=== PATIENT | male | born 1955 | race Caucasian/White ===

== ENCOUNTER → 2018-04-24 08:06 | Outpatient (CLI) | payer OTHER, SELFPAY ==
--- NOTE | 2018-04-24 | DI.MRI.S_ITS ---
PROCEDURE: MR SHOULDER RT WO CON INDICATIONS: Right shoulder pain with decreased range of motion TECHNIQUE: Noncontrast oblique coronal T2 fast spin echo with fat saturation, oblique sagittal T1 spin echo and T2 fast spin echo with fat saturation, axial T1 spin echo and T2 fast spin echo with fat saturation through the shoulder. COMPARISON: [facility], CR, XR SHOULDER RT MIN 2V, 03/06/2018, 13:07. FINDINGS: Image quality: Excellent. Rotator cuff: Supraspinatus tendinopathy and slitlike full-thickness tear is seen, for example image 10-11 series 8. There is infraspinatus tendinopathy and thickening involving the anterior fascicles. Teres minor, and subscapularis tendons appear intact throughout. There is diffuse fatty infiltration of the subscapularis, supraspinatus, infraspinatus and teres minor muscle bellies No definite rotator cuff muscle atrophy on sagittal images. Bones and bursae: No bone marrow contusions or fractures. Moderate acromioclavicular joint degeneration. Mild glenohumeral degenerative joint disease The acromion demonstrates conventional anatomy, without an os acromiale. There is moderate subacromial/subdeltoid bursal fluid. Capsule and soft tissues: In the absence of intra-articular contrast, the labrum and glenohumeral ligaments appear intact. The long head of the biceps tendon demonstrates normal location and morphology. The rotator interval appears normal, without fibrosis. The coracohumeral ligament is normal in thickness. IMPRESSION: Full-thickness slitlike tear involving the supraspinatus critical zone. Background supraspinatus tendinopathy. Infraspinatus tendinopathy and thickening involving the anterior fascicles. Diffuse fatty infiltration of the rotator cuff musculature. Moderate subacromial/subdeltoid bursitis. Dictated by: Janes Mullen M.D. on 04/24/2018 at 9:12 Approved by: Janes Mullen M.D. on 04/24/2018 at 9:20
== END ==
PROVIDERS: Family Provider Family Medicine; PCP Family Medicine; Visit Provider Orthopaedic Surgery
DX: M25.511 Pain in right shoulder (principal); S46.811A Strain of other muscles, fascia and tendons at shoulder and upper arm level, right arm, initial encounter
CPT/HCPCS: 73221

== ENCOUNTER 2018-10-25 14:06 | Emergency (ER) | payer MEDICARE, OTHER, SELFPAY ==
[2018-10-25 14:14] VITALS: BP 158/81; PULSE 84; RESP 16; TEMP 36.4; O2SAT 96; BMI 23.9
--- NOTE | 2018-10-25 14:38 | DI.CT.S_ITS ---
PROCEDURE: CT HEAD/BRAIN WO CON INDICATIONS: fall, hit back of head TECHNIQUE: Noncontrast 4.5 mm thick angled axial sections acquired from the foramen magnum to the vertex, with coronal and sagittal reformats. For radiation dose reduction, the following was used: automated exposure control, adjustment of mA and/or kV according to patient size. COMPARISON: None. FINDINGS: Image quality: Excellent. CSF spaces: Basal cisterns are patent. Small subdural hematoma is noted along the anterior falx. The ventricles are symmetric in size and shape. Brain: No intracranial bleeds or masses. There is mild cerebral volume loss for age, with resultant ventricular and sulcal prominence. There are mild/moderate periventricular and deep white matter chronic small vessel ischemic changes. There is intracranial internal carotid artery atherosclerosis. Skull and face: Calvarium and visualized facial bones appear intact, without suspicious lesions. There is parietal soft tissue contusion and small subscalp hematoma. Sinuses: Visualized sinuses and mastoids are clear. IMPRESSION: 1. Small subdural hematoma along the anterior falx. 2. Cerebral volume loss and chronic microvascular ischemic changes. 3. Parietal soft tissue contusion and small subscalp hematoma. The result was discussed with Alyssa Parikh on 10/25/2018 at 1535 hrs. Dictated by: Helen Woodsno M.D. on 10/25/2018 at 15:29 Approved by: Helen Woodson M.D. on 10/25/2018 at 15:38
--- NOTE | 2018-10-25 14:38 | DI.RAD.S_ITS ---
PROCEDURE: XR RIBS RT MIN 3V W CXR 1V INDICATIONS: fall off first rung ladder TECHNIQUE: 2 views of the right ribs were acquired, along with a single view chest. COMPARISON: None. FINDINGS: Surgical changes and devices: Post surgical changes in the lower cervical spine.. Bones and chest wall: Non-acute right seventh and eighth rib fractures are noted. No suspicious bony lesions. Overlying soft tissues appear unremarkable. Degenerative changes in thoracic spine. Lungs and pleura: No pleural effusions or pneumothorax. Lungs appear clear. Mediastinum: Mediastinal contours appear normal. Heart size is normal. IMPRESSION: Non-acute right seventh and eighth rib fractures are present. No acute displaced rib fractures identified. Dictated by: Helen Woodson M.D. on 10/25/2018 at 15:04 Approved by: Helen Woodson M.D. on 10/25/2018 at 15:08
[2018-10-25] MEDS: TET,DIPH,PERTUSS(ACELL),VAC/PF 0.5 ML SYRINGE IM (14:44)
--- NOTE | 2018-10-25 14:48 | ED.HEATRA ---
HPI - Head Injury <Alyssa ParikhOLAYINKAP-BC - Last Filed: 10/25/18 21:49> General Chief complaint: Head Injury Stated complaint: Fall, head wound Time Seen by Provider: 10/25/18 14:26 Source: patient Mode of arrival: ambulatory Limitations: no limitations History of Present Illness HPI Narrative: Patient is a 63-year-old male nonsmoker with a history of diabetes who presents with a chief complaint of a fall today. He states he fell off the low was wrong of a ladder and hit his head on concrete. Complains of a laceration to the back of his head as well as rib pain. He denies any neck or midline spinal pain. He states he did not lose consciousness. He does not know when his last tetanus was. He denies any other pain. He presented himself to the emergency department. Related Data Home Medications Medication Instructions Recorded Confirmed insulin glargine [Lantus U-100 20 units SQ BEDTIME #0 03/08/10 10/25/18 Insulin] insulin lispro [Humalog U-100 4 - 12 units SQ AC #0 03/08/10 10/25/18 Insulin] levothyroxine [Synthroid] 0.175 mg PO QDAY #0 03/08/10 10/25/18 budesonide 2 spray INTRANASAL DAILY #0 03/15/10 10/25/18 niacin [Niaspan Extended-Release] 1,000 mg PO BEDTIME #0 03/15/10 10/25/18 Ca carb-Ca gluc-Mg ox-Mg gluco 1 tab PO DAILY #0 09/18/17 10/25/18 [Calcium Magnesium] budesonide-formoterol [Symbicort] 2 inh INH BID #0 09/18/17 10/25/18 cetirizine 10 mg PO DAILY PRN #0 09/18/17 10/25/18 flaxseed 15 ml PO DAILY #0 09/18/17 10/25/18 methocarbamol 500 - 1,000 mg PO Q6HP PRN #0 09/18/17 10/25/18 enalapril maleate 20 mg PO DAILY 10/25/18 10/25/18 glucagon (human recombinant) 1 mg IM DIRECTED 10/25/18 10/25/18 [Glucagon Emergency Kit (human)] Allergies Allergy/AdvReac Type Severity Reaction Status Date / Time No Known Drug Allergies Allergy Verified 10/25/18 14:12 Review of Systems <RENEE Myers - Last Filed: 10/25/18 21:49> Review of Systems GENERAL: Denies chills, fatigue, malaise, fever, sweats. HEENT: Denies sinus pain, ear pain, sore throat, difficulty swallowing, dizziness. RESPIRATORY: See HPI CARDIOVASCULAR: Denies chest pain, palpitations, orthopnea, edema, GASTROINTESTINAL: Denies nausea, vomiting, abdominal pain, diarrhea, constipation, melena. : Denies dysuria, frequency, incontinence, hematuria, urinary retention. MUSCULOSKELETAL: denies weakness, joint pain, or bony pain SKIN: See HPI NEUROLOGIC: Denies weakness, headache, numbness, change in speech, confusion, seizures, incoordination. PSYCHIATRIC: No concerning psychosocial issues. 12 point review of systems is negative except for those stated above Exam <RENEE Myers - Last Filed: 10/25/18 21:49> Narrative Exam Narrative: GENERAL: This is a well-nourished, well-developed patient, in no acute distress with gauze on the back of his head HEAD: Atraumatic. Normocephalic. No temporal or scalp tenderness. EYES: Right pupil is 2 mm round and reactive. Left pupil is irregular. Patient states that this is normal for him ?even though it is never noted in my chart ENT: Nose without bleeding, purulent drainage or septal hematoma. Throat without erythema, tonsillar hypertrophy or exudate. Uvula midline. Airway patent. NECK: Trachea midline. No JVD or lymphadenopathy. Supple, nontender, no meningeal signs. No pain to C-spine or spinal palpation. CARDIOVASCULAR: Regular rate and rhythm without murmurs, gallops, or rubs. RESPIRATORY: Clear to auscultation. Breath sounds equal bilaterally. No wheezes, rales, or rhonchi. GASTROINTESTINAL: Abdomen soft, non-tender, nondistended. No hepato-splenomegaly, or palpable masses. No guarding. EXTREMITIES: No clubbing, cyanosis, or edema. No joint tenderness, effusion, or edema noted. BACK: Nontender without deformity or crepitance. No flank tenderness. NEURO: AOx3. No slurred speech. Using all extremities equally. SKIN: Laceration to occiput of head. 2 cm. linear. No obvious foreign body. through dermis. no muscle or tendon involvement. Initial Vital Signs Initial Vital Signs: Vital Signs Temperature 97.5 F L 10/25/18 14:14 Pulse Rate 84 10/25/18 14:14 Respiratory Rate 16 10/25/18 14:14 Blood Pressure 158/81 H 10/25/18 14:14 Pulse Oximetry 96 10/25/18 14:14 <Benjie Salvador DO - Last Filed: 10/25/18 22:10> Initial Vital Signs Initial Vital Signs: Vital Signs Temperature 97.5 F L 10/25/18 14:14 Pulse Rate 84 10/25/18 14:14 Respiratory Rate 16 10/25/18 14:14 Blood Pressure 158/81 H 10/25/18 14:14 Pulse Oximetry 96 10/25/18 14:14 Procedures <RENEE Myers - Last Filed: 10/25/18 21:49> Laceration Repair Laceration 1: Site: scalp Size (cm): 2 Description: linear Depth: simple, single layer Pre-repair: wound explored, irrigated extensively and deep structures intact Skin layer closed with: other (staple x 3) Course <RENEE Myers - Last Filed: 10/25/18 21:49> Orders Ordered: ED Orders 10/25/18 14:38 CT head/brain wo con Stat XR ribs RT min 3V w CXR1V Stat 10/25/18 15:44 CT cervical spine wo con Stat 10/25/18 15:50 Complete Blood Count AUTO DIFF Stat Comprehensive Metabolic Panel Stat Ethanol (ETOH) Stat Lipase Stat Partial Thromboplastin Time Stat Prothrombin Time INR Stat 10/25/18 16:00 Type and Screen Stat 10/25/18 20:30 CT head/brain wo con Stat 10/25/18 20:31 Urine Microscopic Stat Discontinued Medications Diphtheria/Tetanus/Acell Pertussis (Adacel) 0.5 ml IM .ONCE ONE Stop: 10/25/18 14:39 Last Admin: 10/25/18 14:44 Dose: 0.5 ml Reevaluation(s) Reevaluation #1: Patient remains GCS 15. Wound closure as per procedural note. Time: 17:00 Reevaluation #2: Patient remains GCS 15 no complaints. Follows all commands. Strength is equal upper and lower extremities bilaterally. Time: 18:30 Reevaluation #3: Patient remains GCS 15 without complaints. Following all commands steady on feet. Time: 19:30 Consultations Consultation #1: [facility] transfer center contacted Time: 15:50 Consultation #2: Spoke with Dr Vimal Allen from Neurosurgery at [facility]. He reviewed the CT scan. Recommended that the patient receive another head CT at this facility in the next 4-6 hours. If he had a subdural that small at [facility], they would re-scan him and discharge appropriate. Thus this can be accomplished at this facility. Discussed this with patient. He is amendable to waiting for another CT scan rather than jumping to transfer. Time: 16:20 Vital Signs - 8 hr 10/25/18 14:14 10/25/18 16:30 10/25/18 16:58 Temperature 97.5 F L Pulse Rate 84 91 H Respiratory Rate 16 20 Blood Pressure 158/81 H Blood Pressure [Left Arm] 155/86 H Pulse Oximetry 96 100 10/25/18 18:22 10/25/18 20:15 10/25/18 21:52 Temperature Pulse Rate 99 H 84 82 Respiratory Rate 20 18 16 Blood Pressure 138/60 Blood Pressure [Left Arm] 142/63 H 158/63 H Pulse Oximetry 100 97 98 <Benjie Salvador, DO - Last Filed: 10/25/18 22:10> Orders Ordered: ED Orders 10/25/18 14:38 CT head/brain wo con Stat XR ribs RT min 3V w CXR1V Stat 10/25/18 15:44 CT cervical spine wo con Stat 10/25/18 15:50 Complete Blood Count AUTO DIFF Stat Comprehensive Metabolic Panel Stat Ethanol (ETOH) Stat Lipase Stat Partial Thromboplastin Time Stat Prothrombin Time INR Stat 10/25/18 16:00 Type and Screen Stat 10/25/18 20:30 CT head/brain wo con Stat 10/25/18 20:31 Urine Microscopic Stat Discontinued Medications Diphtheria/Tetanus/Acell Pertussis (Adacel) 0.5 ml IM .ONCE ONE Stop: 10/25/18 14:39 Last Admin: 10/25/18 14:44 Dose: 0.5 ml Vital Signs - 8 hr 10/25/18 14:14 10/25/18 16:30 10/25/18 16:58 Temperature 97.5 F L Pulse Rate 84 91 H Respiratory Rate 16 20 Blood Pressure 158/81 H Blood Pressure [Left Arm] 155/86 H Pulse Oximetry 96 100 10/25/18 18:22 10/25/18 20:15 10/25/18 21:52 Temperature Pulse Rate 99 H 84 82 Respiratory Rate 20 18 16 Blood Pressure 138/60 Blood Pressure [Left Arm] 142/63 H 158/63 H Pulse Oximetry 100 97 98 MDM - Head Injury <TIFFANIE Myers- - Last Filed: 10/25/18 21:49> Lab Data Result diagrams: 10/25/18 15:50 10/25/18 15:50 Lab Results 10/25/18 10/25/18 10/25/18 Range/Units 15:50 15:50 15:50 WBC 6.8 (4.5-11.0) X10^3/uL RBC 4.61 (4.5-5.9) X10^6/uL Hgb 14.7 (13.5-17.5) g/dL Hct 43.5 (41-53) % MCV 94.4 (80-100) fL MCH 32.0 (26-34) PG MCHC 33.9 (30-36) % RDW 13.5 (11.6-14.8) % Plt Count 205 (150-400) X10^3/uL Neut % (Auto) 77.5 H (50-75) % Lymph % (Auto) 15.5 L (25-40) % [place] % (Auto) 5.3 (3-14) % Eos % (Auto) 1.3 L (2-4) % Baso % (Auto) 0.4 (0-2) % Neut # (Auto) 5300 (8487-9437) /uL PT 11.0 (10.1-12.7) SECONDS INR 1.0 (0.9-1.3) APTT 27 (26.4-36.2) SECONDS Sodium 140 (137-145) mmol/L Potassium 4.6 (3.4-5.1) mmol/L Chloride 101 (98-107) mmol/L Carbon Dioxide 28 (22-32) mmol/L BUN 21 H (9-20) mg/dL Creatinine 0.70 (0.66-1.25) mg/dL Estimated GFR > 60.0 (>60) mL/min BUN/Creatinine Ratio 30.0 H (6-22) Glucose 185 H (80-110) mg/dL Calcium 9.7 (8.4-10.2) mg/dL Total Bilirubin 0.5 (0.2-1.3) mg/dL AST 54 (17-59) IU/L ALT 54 (21-72) IU/L Alkaline Phosphatase 110 (38-126) U/L Total Protein 7.5 (6.3-8.2) g/dL Albumin 4.4 (3.5-5.0) g/dL Globulin 3.1 (1.7-4.1) g/dL Albumin/Globulin Ratio 1.4 (1.0-2.8) Lipase 81 (23-300) U/L Urine Color Urine Appearance Urine pH Ur Specific Polo Urine Protein Urine Glucose (UA) Urine Ketones Urine Occult Blood Urine Nitrate Urine Bilirubin Urine Urobilinogen Ur Leukocyte Esterase Urine RBC (0-5/HPF) Urine WBC (0-5/HPF) Urine Bacteria (None) Ur Culture Indicated? Micro UA Comment Ethyl Alcohol < 10 mg/dL Blood Type Antibody Screen 10/25/18 10/25/18 Range/Units 16:00 20:31 WBC (4.5-11.0) X10^3/uL RBC (4.5-5.9) X10^6/uL Hgb (13.5-17.5) g/dL Hct (41-53) % MCV (80-100) fL MCH (26-34) PG MCHC (30-36) % RDW (11.6-14.8) % Plt Count (150-400) X10^3/uL Neut % (Auto) (50-75) % Lymph % (Auto) (25-40) % [place] % (Auto) (3-14) % Eos % (Auto) (2-4) % Baso % (Auto) (0-2) % Neut # (Auto) (0966-4838) /uL PT (10.1-12.7) SECONDS INR (0.9-1.3) APTT (26.4-36.2) SECONDS Sodium (137-145) mmol/L Potassium (3.4-5.1) mmol/L Chloride (98-107) mmol/L Carbon Dioxide (22-32) mmol/L BUN (9-20) mg/dL Creatinine (0.66-1.25) mg/dL Estimated GFR (>60) mL/min BUN/Creatinine Ratio (6-22) Glucose (80-110) mg/dL Calcium (8.4-10.2) mg/dL Total Bilirubin (0.2-1.3) mg/dL AST (17-59) IU/L ALT (21-72) IU/L Alkaline Phosphatase (38-126) U/L Total Protein (6.3-8.2) g/dL Albumin (3.5-5.0) g/dL Globulin (1.7-4.1) g/dL Albumin/Globulin Ratio (1.0-2.8) Lipase (23-300) U/L Urine Color Cancelled Urine Appearance Cancelled Urine pH Cancelled Ur Specific Polo Cancelled Urine Protein Cancelled Urine Glucose (UA) Cancelled Urine Ketones Cancelled Urine Occult Blood Cancelled Urine Nitrate Cancelled Urine Bilirubin Cancelled Urine Urobilinogen Cancelled Ur Leukocyte Esterase Cancelled Urine RBC 30-100/hpf H (0-5/HPF) Urine WBC 1-5/hpf (0-5/HPF) Urine Bacteria None seen (None) Ur Culture Indicated? Not Reportable Micro UA Comment Not Reportable Ethyl Alcohol mg/dL Blood Type B Positive Antibody Screen Negative Point of Care Testing Glucose POC 220 Urine Dip Bedside Urine Glucose 500 mg/dl Bedside Urine Bilirubin - Negative Bedside Urine Ketone +/- 5 Urine Specific Polo 1.025 Bedside Urine Occult Blood +++ Bedside Urine pH 6.0 Bedside Urine Protein - Negative Bedside Urine Urobilinogen - Negative Bedside Urine Nitrite - Negative Bedside Urine Leukocytes - Negative Esterase Imaging Data C Spine CT : Radiologist's impression: [address] [address] [address] Scan Report Signed Patient: Danny Van MR#: [id number] : 1955 Acct:[id number] Age/Sex: 63 / M Date of Service: 10/25/18 Loc: ED Accession Number: [id number] Procedure: CT cervical spine wo con Ordering Provider: Alyssa Parikh- PROCEDURE: CT CERVICAL SPINE WO CON INDICATIONS: subdural bleed from a fall TECHNIQUE: Noncontrast 3 mm thick sections acquired from the skull base to the T4 level. Sagittal and coronal reformats were then constructed. For radiation dose reduction, the following was used: automated exposure control, adjustment of mA and/or kV according to patient size. COMPARISON: None. FINDINGS: Image quality: Excellent. Bones: Patient is status post anterior and posterior fusion at C3-C6 levels. No gross hardware loosening or failure is seen. There is straightening of normal cervical lordosis. No acute compression fracture or spondylolisthesis is noted. Vertebral body heights are well-preserved. Degenerative endplate changes are noted at C2-3, C6-7 and C7-T1 levels. Dorsal disc osteophyte complex formation at C6-7 and C7-T1 levels are seen with bilateral uncinate hypertrophic changes causing moderate central canal stenosis and bilateral neuroforaminal narrowing. Visualized superior ribs are intact. Soft tissues: Prevertebral soft tissues are normal in thickness. No paravertebral hematomas. No apical pneumothoraces. Biapical scarring is seen. IMPRESSION: 1. Prior fusion of C3-C6 vertebral bodies. Straightening of normal cervical lordosis. No acute cervical spine fracture or dislocation. No gross hardware complication. 2. Degenerative disc disease throughout cervical spine with suggestion of broad-based disc bulge and dorsal disc osteophyte complex formation at C6-7 and C7-T1 levels causing moderate central canal stenosis and bilateral neuroforaminal narrowing. Dictated by: Taiwo Lal M.D. on 10/25/2018 at 16:05 Approved by: Taiwo Lal M.D. on 10/25/2018 at 16:12 ribs xray : Radiologist's impression: View Report History [address] [address] XRay Report Signed Patient: Danny Van MR#: [id number] : 1955 Acct:[id number] Age/Sex: 63 / M Date of Service: 10/25/18 Loc: ED Accession Number: [id number] Procedure: XR ribs RT min 3V w CXR1V [facility] PROCEDURE: XR RIBS RT MIN 3V W CXR 1V INDICATIONS: fall off first rung ladder TECHNIQUE: 2 views of the right ribs were acquired, along with a single view chest. COMPARISON: None. FINDINGS: Surgical changes and devices: Post surgical changes in the lower cervical spine.. Bones and chest wall: Non-acute right seventh and eighth rib fractures are noted. No suspicious bony lesions. Overlying soft tissues appear unremarkable. Degenerative changes in thoracic spine. Lungs and pleura: No pleural effusions or pneumothorax. Lungs appear clear. Mediastinum: Mediastinal contours appear normal. Heart size is normal. IMPRESSION: Non-acute right seventh and eighth rib fractures are present. No acute displaced rib fractures identified. Dictated by: Helen Woodson M.D. on 10/25/2018 at 15:04 Approved by: Helen Woodson M.D. on 10/25/2018 at 15:08 CT scan - head: Radiologist's impression: [place] [address] CT Scan Report Signed Patient: Danny Van MR#: [id number] : 1955 Acct:[id number] Age/Sex: 63 / M Date of Service: 10/25/18 Loc: ED Accession Number: [id number] Procedure: CT head/brain wo con [facility]ing [facility] PROC[facility]: CT HEAD/BRAIN WO CON INDICATIONS: fall, hit back of head TECHNIQUE: Noncontrast 4.5 mm thick angled axial sections acquired from the foramen magnum to the vertex, with coronal and sagittal reformats. For radiation dose reduction, the following was used: automated exposure control, adjustment of mA and/or kV according to patient size. COMPARISON: None. FINDINGS: Image quality: Excellent. CSF spaces: Basal cisterns are patent. Small subdural hematoma is noted along the anterior falx. The ventricles are symmetric in size and shape. Brain: No intracranial bleeds or masses. There is mild cerebral volume loss for age, with resultant ventricular and sulcal prominence. There are mild/moderate periventricular and deep white matter chronic small vessel ischemic changes. There is intracranial internal carotid artery atherosclerosis. Skull and face: Calvarium and visualized facial bones appear intact, without suspicious lesions. There is parietal soft tissue contusion and small subscalp hematoma. Sinuses: Visualized sinuses and mastoids are clear. IMPRESSION: 1. Small subdural hematoma along the anterior falx. 2. Cerebral volume loss and chronic microvascular ischemic changes. 3. Parietal soft tissue contusion and small subscalp hematoma. The result was discussed with Alyssa Parikh on 10/25/2018 at 1535 hrs. Dictated by: Helen Woodson M.D. on 10/25/2018 at 15:29 Approved by: Helen Woodson M.D. on 10/25/2018 at 15:38 CT head: Radiologist's impression: [place] [address] CT Scan Report Signed Patient: Danny Van MR#: [id number] : 1955 Acct:[id number] Age/Sex: 63 / M Date of Service: 10/25/18 Loc: ED Accession Number: [id number] Procedure: CT head/brain wo con Ordering Provider: Alyssa Parikh [employer]- PROCEDURE: CT HEAD/BRAIN WO CON INDICATIONS: compare size of subdural from previous scan at 15:30 TECHNIQUE: Noncontrast 4.5 mm thick angled axial sections acquired from the foramen magnum to the vertex, with coronal and sagittal reformats. For radiation dose reduction, the following was used: automated exposure control, adjustment of mA and/or kV according to patient size. COMPARISON: [facility], CT, CT HEAD/BRAIN WO CON, 10/25/2018, 15:03. FINDINGS: Image quality: Excellent. CSF spaces: Basal cisterns are patent. Small subdural hematoma along the anterior falx appears unchanged. The ventricles are symmetric in size and shape. Brain: No intracranial bleeds or masses. There is mild cerebral volume loss for age, with resultant ventricular and sulcal prominence. There are mild periventricular and deep white matter chronic small vessel ischemic changes. There is intracranial internal carotid artery atherosclerosis. Skull and face: Calvarium and visualized facial bones appear intact, without suspicious lesions. Sinuses: Visualized sinuses and mastoids are clear. IMPRESSION: 1. Stable small subdural hematoma along the anterior floor. 2. Cerebral volume loss and chronic microvascular ischemic changes. Dictated by: Helen Woodson M.D. on 10/25/2018 at 20:59 Approved by: Helen Woodson M.D. on 10/25/2018 at 21:02 [facility] Narrative Medical decision making narrative: Patient presented after falling backwards off a 2nd rung of a ladder. He was GCS 15 and hemodynamically stable and neurovascularly intact. However given his mechanism of injury and baseline regular pupils, I did obtain a CT scan. This revealed a small subdural hematoma. Subsequently [facility] was contacted, trauma labs were drawn, and I spoke with the neurosurgeon as documented. Per Dr. Vimal Allen, the subdural was small enough that the patient could be re-scanned in 4 hr and discharged if there is no change. Thus this is what we did. He remained GCS 15 and without neurological deficit during the 5 hr between his scans. His laceration was closed as documented. UA illustrated hematuria, I suggested follow-up with primary care provider regarding this. Of note he did complain of some chest wall pain and had no acute fractures on his x-ray. I discussed at length with patient return precautions including confusion, altered mental status as well as follow up with primary care provider. He had no questions or concerns and expressed appreciation for stated in the emergency department. <Benjie Salvador, DO - Last Filed: 10/25/18 22:10> Lab Data Lab Results 10/25/18 10/25/18 10/25/18 Range/Units 15:50 15:50 15:50 WBC 6.8 (4.5-11.0) X10^3/uL RBC 4.61 (4.5-5.9) X10^6/uL Hgb 14.7 (13.5-17.5) g/dL Hct 43.5 (41-53) % MCV 94.4 (80-100) fL MCH 32.0 (26-34) PG MCHC 33.9 (30-36) % RDW 13.5 (11.6-14.8) % Plt Count 205 (150-400) X10^3/uL Neut % (Auto) 77.5 H (50-75) % Lymph % (Auto) 15.5 L (25-40) % [place] % (Auto) 5.3 (3-14) % Eos % (Auto) 1.3 L (2-4) % Baso % (Auto) 0.4 (0-2) % Neut # (Auto) 5300 (8814-7450) /uL PT 11.0 (10.1-12.7) SECONDS INR 1.0 (0.9-1.3) APTT 27 (26.4-36.2) SECONDS Sodium 140 (137-145) mmol/L Potassium 4.6 (3.4-5.1) mmol/L Chloride 101 (98-107) mmol/L Carbon Dioxide 28 (22-32) mmol/L BUN 21 H (9-20) mg/dL Creatinine 0.70 (0.66-1.25) mg/dL Estimated GFR > 60.0 (>60) mL/min BUN/Creatinine Ratio 30.0 H (6-22) Glucose 185 H (80-110) mg/dL Calcium 9.7 (8.4-10.2) mg/dL Total Bilirubin 0.5 (0.2-1.3) mg/dL AST 54 (17-59) IU/L ALT 54 (21-72) IU/L Alkaline Phosphatase 110 (38-126) U/L Total Protein 7.5 (6.3-8.2) g/dL Albumin 4.4 (3.5-5.0) g/dL Globulin 3.1 (1.7-4.1) g/dL Albumin/Globulin Ratio 1.4 (1.0-2.8) Lipase 81 (23-300) U/L Urine Color Urine Appearance Urine pH Ur Specific Polo Urine Protein Urine Glucose (UA) Urine Ketones Urine Occult Blood Urine Nitrate Urine Bilirubin Urine Urobilinogen Ur Leukocyte Esterase Urine RBC (0-5/HPF) Urine WBC (0-5/HPF) Urine Bacteria (None) Ur Culture Indicated? Micro UA Comment Ethyl Alcohol < 10 mg/dL Blood Type Antibody Screen 10/25/18 10/25/18 Range/Units 16:00 20:31 WBC (4.5-11.0) X10^3/uL RBC (4.5-5.9) X10^6/uL Hgb (13.5-17.5) g/dL Hct (41-53) % MCV (80-100) fL MCH (26-34) PG MCHC (30-36) % RDW (11.6-14.8) % Plt Count (150-400) X10^3/uL Neut % (Auto) (50-75) % Lymph % (Auto) (25-40) % [place] % (Auto) (3-14) % Eos % (Auto) (2-4) % Baso % (Auto) (0-2) % Neut # (Auto) (2173-3222) /uL PT (10.1-12.7) SECONDS INR (0.9-1.3) APTT (26.4-36.2) SECONDS Sodium (137-145) mmol/L Potassium (3.4-5.1) mmol/L Chloride (98-107) mmol/L Carbon Dioxide (22-32) mmol/L BUN (9-20) mg/dL Creatinine (0.66-1.25) mg/dL Estimated GFR (>60) mL/min BUN/Creatinine Ratio (6-22) Glucose (80-110) mg/dL Calcium (8.4-10.2) mg/dL Total Bilirubin (0.2-1.3) mg/dL AST (17-59) IU/L ALT (21-72) IU/L Alkaline Phosphatase (38-126) U/L Total Protein (6.3-8.2) g/dL Albumin (3.5-5.0) g/dL Globulin (1.7-4.1) g/dL Albumin/Globulin Ratio (1.0-2.8) Lipase (23-300) U/L Urine Color Cancelled Urine Appearance Cancelled Urine pH Cancelled Ur Specific Polo Cancelled Urine Protein Cancelled Urine Glucose (UA) Cancelled Urine Ketones Cancelled Urine Occult Blood Cancelled Urine Nitrate Cancelled Urine Bilirubin Cancelled Urine Urobilinogen Cancelled Ur Leukocyte Esterase Cancelled Urine RBC 30-100/hpf H (0-5/HPF) Urine WBC 1-5/hpf (0-5/HPF) Urine Bacteria None seen (None) Ur Culture Indicated? Not Reportable Micro UA Comment Not Reportable Ethyl Alcohol mg/dL Blood Type B Positive Antibody Screen Negative Point of Care Testing Glucose POC 220 Urine Dip Bedside Urine Glucose 500 mg/dl Bedside Urine Bilirubin - Negative Bedside Urine Ketone +/- 5 Urine Specific Polo 1.025 Bedside Urine Occult Blood +++ Bedside Urine pH 6.0 Bedside Urine Protein - Negative Bedside Urine Urobilinogen - Negative Bedside Urine Nitrite - Negative Bedside Urine Leukocytes - Negative Esterase Discharge Plan Departure Patient Disposition: Home Clinical Impression: Intracranial subdural hematoma, Chest wall contusion, Hematuria, Fall, Laceration, Contusion Discharge Date/Time: 10/25/18 21:52 Interventions: ED Discharge Assessment Last Done: 10/25/18 21:58 Instructions: DI for Laceration Repair -- [place], DI for Rib Contusion, DI for Hematuria, DI for Subdural Hematoma Activity Restrictions/Additional Instructions: Today when you fell you ended up with bleeding in your head. We scanned your head twice, about 5 hr apart and there was no change the bleed. Please monitor for any confusion, vomiting or acute neurological signs. Please be re-evaluated immediately if you have any concerns. Please have your denis out in 10-14 days. Please monitor for fever, pus or any signs of infection and be evaluated if any of these occur. Please follow-up with primary care provider as soon as possible. Please remember that there was blood in your urine today and this needs to be monitored. Prescriptions: No Action insulin lispro [Humalog U-100 Insulin] 100 unit/mL Solution 4 - 12 units SQ AC Qty: 0 RF: 0 levothyroxine [Synthroid] 175 MCG tablet 0.175 mg PO QDAY Qty: 0 RF: 0 insulin glargine [Lantus U-100 Insulin] 100 unit/mL Solution 20 units SQ BEDTIME Qty: 0 RF: 0 budesonide 32 mcg/actuation Hardy,Non-Aerosol 2 spray INTRANASAL DAILY Qty: 0 RF: 0 niacin [Niaspan Extended-Release] 1,000 MG tablet extended release 24 hr 1,000 mg PO BEDTIME Qty: 0 RF: 0 cetirizine 10 MG tablet 10 mg PO DAILY PRN (Reason: Allergy Symptoms) Qty: 0 RF: 0 Ca carb-Ca gluc-Mg ox-Mg gluco [Calcium Magnesium] 500 mg calcium -250 mg Tablet 1 tab PO DAILY Qty: 0 RF: 0 flaxseed Powder 15 ml PO DAILY Qty: 0 RF: 0 methocarbamol 500 MG tablet 500 - 1,000 mg PO Q6HP PRN (Reason: Muscle Spasm) Qty: 0 RF: 0 budesonide-formoterol [Symbicort] 80 MCG/4.5 MCG HFA aerosol inhaler 2 inh INH BID Qty: 0 RF: 0 enalapril maleate 20 mg Tablet 20 mg PO DAILY RF: 0 glucagon (human recombinant) [Glucagon Emergency Kit (human)] 1 mg Recon Soln 1 mg IM DIRECTED RF: 0 Referrals: Arias Haile MD [Primary Care Provider] - <Benjie Salvador DO - Last Filed: 10/25/18 22:10> Cosign ED Attending Fiona Attestation: I was available for consultation during this patient's emergency department encounter
--- NOTE | 2018-10-25 14:52 | ED_ITS ---
HPI - Head Injury <Alyssa ParikhOLAYINKAP-BC - Last Filed: 10/25/18 21:49> General Chief complaint: Head Injury Stated complaint: Fall, head wound Time Seen by Provider: 10/25/18 14:26 Source: patient Mode of arrival: ambulatory Limitations: no limitations History of Present Illness HPI Narrative: Patient is a 63-year-old male nonsmoker with a history of diabetes who presents with a chief complaint of a fall today. He states he fell off the low was wrong of a ladder and hit his head on concrete. Complains of a laceration to the back of his head as well as rib pain. He denies any neck or midline spinal pain. He states he did not lose consciousness. He does not know when his last tetanus was. He denies any other pain. He presented himself to the emergency department. Related Data Home Medications Medication Instructions Recorded Confirmed insulin glargine [Lantus U-100 20 units SQ BEDTIME #0 03/08/10 10/25/18 Insulin] insulin lispro [Humalog U-100 4 - 12 units SQ AC #0 03/08/10 10/25/18 Insulin] levothyroxine [Synthroid] 0.175 mg PO QDAY #0 03/08/10 10/25/18 budesonide 2 spray INTRANASAL DAILY #0 03/15/10 10/25/18 niacin [Niaspan Extended-Release] 1,000 mg PO BEDTIME #0 03/15/10 10/25/18 Ca carb-Ca gluc-Mg ox-Mg gluco 1 tab PO DAILY #0 09/18/17 10/25/18 [Calcium Magnesium] budesonide-formoterol [Symbicort] 2 inh INH BID #0 09/18/17 10/25/18 cetirizine 10 mg PO DAILY PRN #0 09/18/17 10/25/18 flaxseed 15 ml PO DAILY #0 09/18/17 10/25/18 methocarbamol 500 - 1,000 mg PO Q6HP PRN #0 09/18/17 10/25/18 enalapril maleate 20 mg PO DAILY 10/25/18 10/25/18 glucagon (human recombinant) 1 mg IM DIRECTED 10/25/18 10/25/18 [Glucagon Emergency Kit (human)] Allergies Allergy/AdvReac Type Severity Reaction Status Date / Time No Known Drug Allergies Allergy Verified 10/25/18 14:12 Review of Systems <RENEE Myers - Last Filed: 10/25/18 21:49> Review of Systems GENERAL: Denies chills, fatigue, malaise, fever, sweats. HEENT: Denies sinus pain, ear pain, sore throat, difficulty swallowing, dizziness. RESPIRATORY: See HPI CARDIOVASCULAR: Denies chest pain, palpitations, orthopnea, edema, GASTROINTESTINAL: Denies nausea, vomiting, abdominal pain, diarrhea, constipation, melena. : Denies dysuria, frequency, incontinence, hematuria, urinary retention. MUSCULOSKELETAL: denies weakness, joint pain, or bony pain SKIN: See HPI NEUROLOGIC: Denies weakness, headache, numbness, change in speech, confusion, seizures, incoordination. PSYCHIATRIC: No concerning psychosocial issues. 12 point review of systems is negative except for those stated above Exam <RENEE Myers - Last Filed: 10/25/18 21:49> Narrative Exam Narrative: GENERAL: This is a well-nourished, well-developed patient, in no acute distress with gauze on the back of his head HEAD: Atraumatic. Normocephalic. No temporal or scalp tenderness. EYES: Right pupil is 2 mm round and reactive. Left pupil is irregular. Patient states that this is normal for him ?even though it is never noted in my chart ENT: Nose without bleeding, purulent drainage or septal hematoma. Throat without erythema, tonsillar hypertrophy or exudate. Uvula midline. Airway patent. NECK: Trachea midline. No JVD or lymphadenopathy. Supple, nontender, no meningeal signs. No pain to C-spine or spinal palpation. CARDIOVASCULAR: Regular rate and rhythm without murmurs, gallops, or rubs. RESPIRATORY: Clear to auscultation. Breath sounds equal bilaterally. No wheezes , rales, or rhonchi. GASTROINTESTINAL: Abdomen soft, non-tender, nondistended. No hepato-splenomegaly , or palpable masses. No guarding. EXTREMITIES: No clubbing, cyanosis, or edema. No joint tenderness, effusion, or edema noted. BACK: Nontender without deformity or crepitance. No flank tenderness. NEURO: AOx3. No slurred speech. Using all extremities equally. SKIN: Laceration to occiput of head. 2 cm. linear. No obvious foreign body. through dermis. no muscle or tendon involvement. Initial Vital Signs Initial Vital Signs: Vital Signs Temperature 97.5 F L 10/25/18 14:14 Pulse Rate 84 10/25/18 14:14 Respiratory Rate 16 10/25/18 14:14 Blood Pressure 158/81 H 10/25/18 14:14 Pulse Oximetry 96 10/25/18 14:14 <Benjie Salvador DO - Last Filed: 10/25/18 22:10> Initial Vital Signs Initial Vital Signs: Vital Signs Temperature 97.5 F L 10/25/18 14:14 Pulse Rate 84 10/25/18 14:14 Respiratory Rate 16 10/25/18 14:14 Blood Pressure 158/81 H 10/25/18 14:14 Pulse Oximetry 96 10/25/18 14:14 Procedures <RENEE Myers - Last Filed: 10/25/18 21:49> Laceration Repair Laceration 1: Site: scalp Size (cm): 2 Description: linear Depth: simple, single layer Pre-repair: wound explored, irrigated extensively and deep structures intact Skin layer closed with: other (staple x 3) Course <RENEE Myers - Last Filed: 10/25/18 21:49> Orders Ordered: ED Orders 10/25/18 14:38 CT head/brain wo con Stat XR ribs RT min 3V w CXR1V Stat 10/25/18 15:44 CT cervical spine wo con Stat 10/25/18 15:50 Complete Blood Count AUTO DIFF Stat Comprehensive Metabolic Panel Stat Ethanol (ETOH) Stat Lipase Stat Partial Thromboplastin Time Stat Prothrombin Time INR Stat 10/25/18 16:00 Type and Screen Stat 10/25/18 20:30 CT head/brain wo con Stat 10/25/18 20:31 Urine Microscopic Stat Discontinued Medications Diphtheria/Tetanus/Acell Pertussis (Adacel) 0.5 ml IM .ONCE ONE Stop: 10/25/18 14:39 Last Admin: 10/25/18 14:44 Dose: 0.5 ml Reevaluation(s) Reevaluation #1: Patient remains GCS 15. Wound closure as per procedural note. Time: 17:00 Reevaluation #2: Patient remains GCS 15 no complaints. Follows all commands. Strength is equal upper and lower extremities bilaterally. Time: 18:30 Reevaluation #3: Patient remains GCS 15 without complaints. Following all commands steady on feet. Time: 19:30 Consultations Consultation #1: [facility] transfer center contacted Time: 15:50 Consultation #2: Spoke with Dr Vimal Allen from Neurosurgery at [facility]. He reviewed the CT scan. Recommended that the patient receive another head CT at this facility in the next 4-6 hours. If he had a subdural that small at [facility], they would re-scan him and discharge appropriate. Thus this can be accomplished at this facility. Discussed this with patient. He is amendable to waiting for another CT scan rather than jumping to transfer. Time: 16:20 Vital Signs - 8 hr 10/25/18 14:14 10/25/18 16:30 10/25/18 16:58 Temperature 97.5 F L Pulse Rate 84 91 H Respiratory Rate 16 20 Blood Pressure 158/81 H Blood Pressure [Left Arm] 155/86 H Pulse Oximetry 96 100 10/25/18 18:22 10/25/18 20:15 10/25/18 21:52 Temperature Pulse Rate 99 H 84 82 Respiratory Rate 20 18 16 Blood Pressure 138/60 Blood Pressure [Left Arm] 142/63 H 158/63 H Pulse Oximetry 100 97 98 <Benjie Salvador, DO - Last Filed: 10/25/18 22:10> Orders Ordered: ED Orders 10/25/18 14:38 CT head/brain wo con Stat XR ribs RT min 3V w CXR1V Stat 10/25/18 15:44 CT cervical spine wo con Stat 10/25/18 15:50 Complete Blood Count AUTO DIFF Stat Comprehensive Metabolic Panel Stat Ethanol (ETOH) Stat Lipase Stat Partial Thromboplastin Time Stat Prothrombin Time INR Stat 10/25/18 16:00 Type and Screen Stat 10/25/18 20:30 CT head/brain wo con Stat 10/25/18 20:31 Urine Microscopic Stat Discontinued Medications Diphtheria/Tetanus/Acell Pertussis (Adacel) 0.5 ml IM .ONCE ONE Stop: 10/25/18 14:39 Last Admin: 10/25/18 14:44 Dose: 0.5 ml Vital Signs - 8 hr 10/25/18 14:14 10/25/18 16:30 10/25/18 16:58 Temperature 97.5 F L Pulse Rate 84 91 H Respiratory Rate 16 20 Blood Pressure 158/81 H Blood Pressure [Left Arm] 155/86 H Pulse Oximetry 96 100 10/25/18 18:22 10/25/18 20:15 10/25/18 21:52 Temperature Pulse Rate 99 H 84 82 Respiratory Rate 20 18 16 Blood Pressure 138/60 Blood Pressure [Left Arm] 142/63 H 158/63 H Pulse Oximetry 100 97 98 MDM - Head Injury <TIFFANIE Myers- - Last Filed: 10/25/18 21:49> Lab Data Result diagrams: 10/25/18 15:50 10/25/18 15:50 Lab Results 10/25/18 10/25/18 10/25/18 Range/Units 15:50 15:50 15:50 WBC 6.8 (4.5-11.0) X10^3/uL RBC 4.61 (4.5-5.9) X10^6/uL Hgb 14.7 (13.5-17.5) g/dL Hct 43.5 (41-53) % MCV 94.4 (80-100) fL MCH 32.0 (26-34) PG MCHC 33.9 (30-36) % RDW 13.5 (11.6-14.8) % Plt Count 205 (150-400) X10^3/uL Neut % (Auto) 77.5 H (50-75) % Lymph % (Auto) 15.5 L (25-40) % Benzie % (Auto) 5.3 (3-14) % Eos % (Auto) 1.3 L (2-4) % Baso % (Auto) 0.4 (0-2) % Neut # (Auto) 5300 (6288-1231) /uL PT 11.0 (10.1-12.7) SECONDS INR 1.0 (0.9-1.3) APTT 27 (26.4-36.2) SECONDS Sodium 140 (137-145) mmol/L Potassium 4.6 (3.4-5.1) mmol/L Chloride 101 (98-107) mmol/L Carbon Dioxide 28 (22-32) mmol/L BUN 21 H (9-20) mg/dL Creatinine 0.70 (0.66-1.25) mg/dL Estimated GFR > 60.0 (>60) mL/min BUN/Creatinine Ratio 30.0 H (6-22) Glucose 185 H (80-110) mg/dL Calcium 9.7 (8.4-10.2) mg/dL Total Bilirubin 0.5 (0.2-1.3) mg/dL AST 54 (17-59) IU/L ALT 54 (21-72) IU/L Alkaline Phosphatase 110 (38-126) U/L Total Protein 7.5 (6.3-8.2) g/dL Albumin 4.4 (3.5-5.0) g/dL Globulin 3.1 (1.7-4.1) g/dL Albumin/Globulin Ratio 1.4 (1.0-2.8) Lipase 81 (23-300) U/L Urine Color Urine Appearance Urine pH Ur Specific [place] Urine Protein Urine Glucose (UA) Urine Ketones Urine Occult Blood Urine Nitrate Urine Bilirubin Urine Urobilinogen Ur Leukocyte Esterase Urine RBC (0-5/HPF) Urine WBC (0-5/HPF) Urine Bacteria (None) Ur Culture Indicated? Micro UA Comment Ethyl Alcohol < 10 mg/dL Blood Type Antibody Screen 10/25/18 10/25/18 Range/Units 16:00 20:31 WBC (4.5-11.0) X10^3/uL RBC (4.5-5.9) X10^6/uL Hgb (13.5-17.5) g/dL Hct (41-53) % MCV (80-100) fL MCH (26-34) PG MCHC (30-36) % RDW (11.6-14.8) % Plt Count (150-400) X10^3/uL Neut % (Auto) (50-75) % Lymph % (Auto) (25-40) % Benzie % (Auto) (3-14) % Eos % (Auto) (2-4) % Baso % (Auto) (0-2) % Neut # (Auto) (3132-0876) /uL PT (10.1-12.7) SECONDS INR (0.9-1.3) APTT (26.4-36.2) SECONDS Sodium (137-145) mmol/L Potassium (3.4-5.1) mmol/L Chloride (98-107) mmol/L Carbon Dioxide (22-32) mmol/L BUN (9-20) mg/dL Creatinine (0.66-1.25) mg/dL Estimated GFR (>60) mL/min BUN/Creatinine Ratio (6-22) Glucose (80-110) mg/dL Calcium (8.4-10.2) mg/dL Total Bilirubin (0.2-1.3) mg/dL AST (17-59) IU/L ALT (21-72) IU/L Alkaline Phosphatase (38-126) U/L Total Protein (6.3-8.2) g/dL Albumin (3.5-5.0) g/dL Globulin (1.7-4.1) g/dL Albumin/Globulin Ratio (1.0-2.8) Lipase (23-300) U/L Urine Color Cancelled Urine Appearance Cancelled Urine pH Cancelled Ur Specific [place] Cancelled Urine Protein Cancelled Urine Glucose (UA) Cancelled Urine Ketones Cancelled Urine Occult Blood Cancelled Urine Nitrate Cancelled Urine Bilirubin Cancelled Urine Urobilinogen Cancelled Ur Leukocyte Esterase Cancelled Urine RBC 30-100/hpf H (0-5/HPF) Urine WBC 1-5/hpf (0-5/HPF) Urine Bacteria None seen (None) Ur Culture Indicated? Not Reportable Micro UA Comment Not Reportable Ethyl Alcohol mg/dL Blood Type B Positive Antibody Screen Negative Point of Care Testing Glucose POC 220 Urine Dip Bedside Urine Glucose 500 mg/dl Bedside Urine Bilirubin - Negative Bedside Urine Ketone +/- 5 Urine Specific [place] 1.025 Bedside Urine Occult Blood +++ Bedside Urine pH 6.0 Bedside Urine Protein - Negative Bedside Urine Urobilinogen - Negative Bedside Urine Nitrite - Negative Bedside Urine Leukocytes - Negative Esterase Imaging Data C Spine CT : Radiologist's impression: [address] [address] [address] Scan Report Signed Patient: Danny Van MR#: [id number] : 1955 Acct:[id number] Age/Sex: 63 / M Date of Service: 10/25/18 Loc: ED Accession Number: [id number] Procedure: CT cervical spine wo con Ordering Provider: Alyssa Parikh- PROCEDURE: CT CERVICAL SPINE WO CON INDICATIONS: subdural bleed from a fall TECHNIQUE: Noncontrast 3 mm thick sections acquired from the skull base to the T4 level. Sagittal and coronal reformats were then constructed. For radiation dose reduction, the following was used: automated exposure control, adjustment of mA and/or kV according to patient size. COMPARISON: None. FINDINGS: Image quality: Excellent. Bones: Patient is status post anterior and posterior fusion at C3-C6 levels. No gross hardware loosening or failure is seen. There is straightening of normal cervical lordosis. No acute compression fracture or spondylolisthesis is noted. Vertebral body heights are well-preserved. Degenerative endplate changes are noted at C2-3, C6- 7 and C7-T1 levels. Dorsal disc osteophyte complex formation at C6-7 and C7-T1 levels are seen with bilateral uncinate hypertrophic changes causing moderate central canal stenosis and bilateral neuroforaminal narrowing. Visualized superior ribs are intact. Soft tissues: Prevertebral soft tissues are normal in thickness. No paravertebral hematomas. No apical pneumothoraces. Biapical scarring is seen. IMPRESSION: 1. Prior fusion of C3-C6 vertebral bodies. Straightening of normal cervical lordosis. No acute cervical spine fracture or dislocation. No gross hardware complication. 2. Degenerative disc disease throughout cervical spine with suggestion of broad- based disc bulge and dorsal disc osteophyte complex formation at C6-7 and C7-T1 levels causing moderate central canal stenosis and bilateral neuroforaminal narrowing. Dictated by: Taiwo Lal M.D. on 10/25/2018 at 16:05 Approved by: Taiwo Lal M.D. on 10/25/2018 at 16:12 ribs xray : Radiologist's impression: View Report History [address] [address] XRay Report Signed Patient: Danny Van MR#: [id number] : 1955 Acct:[id number] Age/Sex: 63 / M Date of Service: 10/25/18 Loc: ED Accession Number: [id number] Procedure: XR ribs RT min 3V w CXR1V [facility]: XR RIBS RT MIN 3V W CXR 1V INDICATIONS: fall off first rung ladder TECHNIQUE: 2 views of the right ribs were acquired, along with a single view chest. COMPARISON: None. FINDINGS: Surgical changes and devices: Post surgical changes in the lower cervical spine.. Bones and chest wall: Non-acute right seventh and eighth rib fractures are noted. No suspicious bony lesions. Overlying soft tissues appear unremarkable. Degenerative changes in thoracic spine. Lungs and pleura: No pleural effusions or pneumothorax. Lungs appear clear. Mediastinum: Mediastinal contours appear normal. Heart size is normal. IMPRESSION: Non-acute right seventh and eighth rib fractures are present. No acute displaced rib fractures identified. Dictated by: Helen Woodson M.D. on 10/25/2018 at 15:04 Approved by: Helen Woodson M.D. on 10/25/2018 at 15:08 CT scan - head: Radiologist's impression: [place] [address] CT Scan Report Signed Patient: Danny Van MR#: [id number] : 1955 Acct:[id number] Age/Sex: 63 / M Date of Service: 10/25/18 Loc: ED Accession Number: [id number] Procedure: CT head/brain wo con [facility]ing [facility] CT HEAD/BRAIN WO CON INDICATIONS: fall, hit back of head TECHNIQUE: Noncontrast 4.5 mm thick angled axial sections acquired from the foramen magnum to the vertex, with coronal and sagittal reformats. For radiation dose reduction, the following was used: automated exposure control, adjustment of mA and/or kV according to patient size. COMPARISON: None. FINDINGS: Image quality: Excellent. CSF spaces: Basal cisterns are patent. Small subdural hematoma is noted along the anterior falx. The ventricles are symmetric in size and shape. Brain: No intracranial bleeds or masses. There is mild cerebral volume loss for age, with resultant ventricular and sulcal prominence. There are mild/moderate periventricular and deep white matter chronic small vessel ischemic changes. There is intracranial internal carotid artery atherosclerosis. Skull and face: Calvarium and visualized facial bones appear intact, without suspicious lesions. There is parietal soft tissue contusion and small subscalp hematoma. Sinuses: Visualized sinuses and mastoids are clear. IMPRESSION: 1. Small subdural hematoma along the anterior falx. 2. Cerebral volume loss and chronic microvascular ischemic changes. 3. Parietal soft tissue contusion and small subscalp hematoma. The result was discussed with Alyssa Parikh on 10/25/2018 at 1535 hrs. Dictated by: Helen Woodson M.D. on 10/25/2018 at 15:29 Approved by: Helen Woodson M.D. on 10/25/2018 at 15:38 CT head: Radiologist's impression: [place] [address] CT Scan Report Signed Patient: Danny Van MR#: [id number] : 1955 Acct:[id number] Age/Sex: 63 / M Date of Service: 10/25/18 Loc: ED Accession Number: [id number] Procedure: CT head/brain wo con Ordering Provider: Alyssa Parikh REGISTERED NURSE- PROCEDURE: CT HEAD/BRAIN WO CON INDICATIONS: compare size of subdural from previous scan at 15:30 TECHNIQUE: Noncontrast 4.5 mm thick angled axial sections acquired from the foramen magnum to the vertex, with coronal and sagittal reformats. For radiation dose reduction, the following was used: automated exposure control, adjustment of mA and/or kV according to patient size. COMPARISON: [facility], CT, CT HEAD/BRAIN WO CON, 10/25/2018, 15:03. FINDINGS: Image quality: Excellent. CSF spaces: Basal cisterns are patent. Small subdural hematoma along the anterior falx appears unchanged. The ventricles are symmetric in size and shape. Brain: No intracranial bleeds or masses. There is mild cerebral volume loss for age, with resultant ventricular and sulcal prominence. There are mild periventricular and deep white matter chronic small vessel ischemic changes. There is intracranial internal carotid artery atherosclerosis. Skull and face: Calvarium and visualized facial bones appear intact, without suspicious lesions. Sinuses: Visualized sinuses and mastoids are clear. IMPRESSION: 1. Stable small subdural hematoma along the anterior floor. 2. Cerebral volume loss and chronic microvascular ischemic changes. Dictated by: Helen Woodson M.D. on 10/25/2018 at 20:59 Approved by: Helen Woodson M.D. on 10/25/2018 at 21:02 [facility] Narrative Medical decision making narrative: Patient presented after falling backwards off a 2nd rung of a ladder. He was GCS 15 and hemodynamically stable and neurovascularly intact. However given his mechanism of injury and baseline regular pupils, I did obtain a CT scan. This revealed a small subdural hematoma. Subsequently [facility] was contacted, trauma labs were drawn, and I spoke with the neurosurgeon as documented. Per Dr. Vimal Allen, the subdural was small enough that the patient could be re-scanned in 4 hr and discharged if there is no change. Thus this is what we did. He remained GCS 15 and without neurological deficit during the 5 hr between his scans. His laceration was closed as documented. UA illustrated hematuria, I suggested follow-up with primary care provider regarding this. Of note he did complain of some chest wall pain and had no acute fractures on his x-ray. I discussed at length with patient return precautions including confusion, altered mental status as well as follow up with primary care provider. He had no questions or concerns and expressed appreciation for stated in the emergency department. <Benjie Salvador, DO - Last Filed: 10/25/18 22:10> Lab Data Lab Results 10/25/18 10/25/18 10/25/18 Range/Units 15:50 15:50 15:50 WBC 6.8 (4.5-11.0) X10^3/uL RBC 4.61 (4.5-5.9) X10^6/uL Hgb 14.7 (13.5-17.5) g/dL Hct 43.5 (41-53) % MCV 94.4 (80-100) fL MCH 32.0 (26-34) PG MCHC 33.9 (30-36) % RDW 13.5 (11.6-14.8) % Plt Count 205 (150-400) X10^3/uL Neut % (Auto) 77.5 H (50-75) % Lymph % (Auto) 15.5 L (25-40) % Benzie % (Auto) 5.3 (3-14) % Eos % (Auto) 1.3 L (2-4) % Baso % (Auto) 0.4 (0-2) % Neut # (Auto) 5300 (7816-6478) /uL PT 11.0 (10.1-12.7) SECONDS INR 1.0 (0.9-1.3) APTT 27 (26.4-36.2) SECONDS Sodium 140 (137-145) mmol/L Potassium 4.6 (3.4-5.1) mmol/L Chloride 101 (98-107) mmol/L Carbon Dioxide 28 (22-32) mmol/L BUN 21 H (9-20) mg/dL Creatinine 0.70 (0.66-1.25) mg/dL Estimated GFR > 60.0 (>60) mL/min BUN/Creatinine Ratio 30.0 H (6-22) Glucose 185 H (80-110) mg/dL Calcium 9.7 (8.4-10.2) mg/dL Total Bilirubin 0.5 (0.2-1.3) mg/dL AST 54 (17-59) IU/L ALT 54 (21-72) IU/L Alkaline Phosphatase 110 (38-126) U/L Total Protein 7.5 (6.3-8.2) g/dL Albumin 4.4 (3.5-5.0) g/dL Globulin 3.1 (1.7-4.1) g/dL Albumin/Globulin Ratio 1.4 (1.0-2.8) Lipase 81 (23-300) U/L Urine Color Urine Appearance Urine pH Ur Specific [place] Urine Protein Urine Glucose (UA) Urine Ketones Urine Occult Blood Urine Nitrate Urine Bilirubin Urine Urobilinogen Ur Leukocyte Esterase Urine RBC (0-5/HPF) Urine WBC (0-5/HPF) Urine Bacteria (None) Ur Culture Indicated? Micro UA Comment Ethyl Alcohol < 10 mg/dL Blood Type Antibody Screen 10/25/18 10/25/18 Range/Units 16:00 20:31 WBC (4.5-11.0) X10^3/uL RBC (4.5-5.9) X10^6/uL Hgb (13.5-17.5) g/dL Hct (41-53) % MCV (80-100) fL MCH (26-34) PG MCHC (30-36) % RDW (11.6-14.8) % Plt Count (150-400) X10^3/uL Neut % (Auto) (50-75) % Lymph % (Auto) (25-40) % Benzie % (Auto) (3-14) % Eos % (Auto) (2-4) % Baso % (Auto) (0-2) % Neut # (Auto) (3021-1411) /uL PT (10.1-12.7) SECONDS INR (0.9-1.3) APTT (26.4-36.2) SECONDS Sodium (137-145) mmol/L Potassium (3.4-5.1) mmol/L Chloride (98-107) mmol/L Carbon Dioxide (22-32) mmol/L BUN (9-20) mg/dL Creatinine (0.66-1.25) mg/dL Estimated GFR (>60) mL/min BUN/Creatinine Ratio (6-22) Glucose (80-110) mg/dL Calcium (8.4-10.2) mg/dL Total Bilirubin (0.2-1.3) mg/dL AST (17-59) IU/L ALT (21-72) IU/L Alkaline Phosphatase (38-126) U/L Total Protein (6.3-8.2) g/dL Albumin (3.5-5.0) g/dL Globulin (1.7-4.1) g/dL Albumin/Globulin Ratio (1.0-2.8) Lipase (23-300) U/L Urine Color Cancelled Urine Appearance Cancelled Urine pH Cancelled Ur Specific [place] Cancelled Urine Protein Cancelled Urine Glucose (UA) Cancelled Urine Ketones Cancelled Urine Occult Blood Cancelled Urine Nitrate Cancelled Urine Bilirubin Cancelled Urine Urobilinogen Cancelled Ur Leukocyte Esterase Cancelled Urine RBC 30-100/hpf H (0-5/HPF) Urine WBC 1-5/hpf (0-5/HPF) Urine Bacteria None seen (None) Ur Culture Indicated? Not Reportable Micro UA Comment Not Reportable Ethyl Alcohol mg/dL Blood Type B Positive Antibody Screen Negative Point of Care Testing Glucose POC 220 Urine Dip Bedside Urine Glucose 500 mg/dl Bedside Urine Bilirubin - Negative Bedside Urine Ketone +/- 5 Urine Specific [place] 1.025 Bedside Urine Occult Blood +++ Bedside Urine pH 6.0 Bedside Urine Protein - Negative Bedside Urine Urobilinogen - Negative Bedside Urine Nitrite - Negative Bedside Urine Leukocytes - Negative Esterase Discharge Plan Departure Patient Disposition: Home Clinical Impression: Intracranial subdural hematoma, Chest wall contusion, Hematuria, Fall, Laceration, Contusion Discharge Date/Time: 10/25/18 21:52 Interventions: ED Discharge Assessment Last Done: 10/25/18 21:58 Instructions: DI for Laceration Repair -- [place], DI for Rib Contusion, DI for Hematuria, DI for Subdural Hematoma Activity Restrictions/Additional Instructions: Today when you fell you ended up with bleeding in your head. We scanned your head twice, about 5 hr apart and there was no change the bleed. Please monitor for any confusion, vomiting or acute neurological signs. Please be re-evaluated immediately if you have any concerns. Please have your denis out in 10-14 days. Please monitor for fever, pus or any signs of infection and be evaluated if any of these occur. Please follow-up with primary care provider as soon as possible. Please remember that there was blood in your urine today and this needs to be monitored. Prescriptions: No Action insulin lispro [Humalog U-100 Insulin] 100 unit/mL Solution 4 - 12 units SQ AC Qty: 0 RF: 0 levothyroxine [Synthroid] 175 MCG tablet 0.175 mg PO QDAY Qty: 0 RF: 0 insulin glargine [Lantus U-100 Insulin] 100 unit/mL Solution 20 units SQ BEDTIME Qty: 0 RF: 0 budesonide 32 mcg/actuation Nursery,Non-Aerosol 2 spray INTRANASAL DAILY Qty: 0 RF: 0 niacin [Niaspan Extended-Release] 1,000 MG tablet extended release 24 hr 1,000 mg PO BEDTIME Qty: 0 RF: 0 cetirizine 10 MG tablet 10 mg PO DAILY PRN (Reason: Allergy Symptoms) Qty: 0 RF: 0 Ca carb-Ca gluc-Mg ox-Mg gluco [Calcium Magnesium] 500 mg calcium -250 mg Tablet 1 tab PO DAILY Qty: 0 RF: 0 flaxseed Powder 15 ml PO DAILY Qty: 0 RF: 0 methocarbamol 500 MG tablet 500 - 1,000 mg PO Q6HP PRN (Reason: Muscle Spasm) Qty: 0 RF: 0 budesonide-formoterol [Symbicort] 80 MCG/4.5 MCG HFA aerosol inhaler 2 inh INH BID Qty: 0 RF: 0 enalapril maleate 20 mg Tablet 20 mg PO DAILY RF: 0 glucagon (human recombinant) [Glucagon Emergency Kit (human)] 1 mg Recon Soln 1 mg IM DIRECTED RF: 0 Referrals: Arias Haile MD [Primary Care Provider] - <Benjie Salvador DO - Last Filed: 10/25/18 22:10> Cosign ED Attending Fiona Attestation: I was available for consultation during this patient's emergency department encounter
--- NOTE | 2018-10-25 15:44 | DI.CT.S_ITS ---
PROCEDURE: CT CERVICAL SPINE WO CON INDICATIONS: subdural bleed from a fall TECHNIQUE: Noncontrast 3 mm thick sections acquired from the skull base to the T4 level. Sagittal and coronal reformats were then constructed. For radiation dose reduction, the following was used: automated exposure control, adjustment of mA and/or kV according to patient size. COMPARISON: None. FINDINGS: Image quality: Excellent. Bones: Patient is status post anterior and posterior fusion at C3-C6 levels. No gross hardware loosening or failure is seen. There is straightening of normal cervical lordosis. No acute compression fracture or spondylolisthesis is noted. Vertebral body heights are well-preserved. Degenerative endplate changes are noted at C2-3, C6-7 and C7-T1 levels. Dorsal disc osteophyte complex formation at C6-7 and C7-T1 levels are seen with bilateral uncinate hypertrophic changes causing moderate central canal stenosis and bilateral neuroforaminal narrowing. Visualized superior ribs are intact. Soft tissues: Prevertebral soft tissues are normal in thickness. No paravertebral hematomas. No apical pneumothoraces. Biapical scarring is seen. IMPRESSION: 1. Prior fusion of C3-C6 vertebral bodies. Straightening of normal cervical lordosis. No acute cervical spine fracture or dislocation. No gross hardware complication. 2. Degenerative disc disease throughout cervical spine with suggestion of broad-based disc bulge and dorsal disc osteophyte complex formation at C6-7 and C7-T1 levels causing moderate central canal stenosis and bilateral neuroforaminal narrowing. Dictated by: Taiwo Lal M.D. on 10/25/2018 at 16:05 Approved by: Taiwo Lal M.D. on 10/25/2018 at 16:12
[2018-10-25 16:10] LABS: Add Manual Diff / Slide Review NO; Basophils Percent Auto 0.4 % (0-2); Eosinophils Percent Auto 1.3 % (2-4); Hematocrit 43.5 % (41-53); Hemoglobin 14.7 g/dL (13.5-17.5); Lymphocytes Percent Auto 15.5 % (25-40); Mean Corpuscular HGB Conc 33.9 % (30-36); Mean Corpuscular Volume 94.4 fL (80-100); Monocytes Percent Auto 5.3 % (3-14); Neutrophils Absolute Auto 5300 /uL (1500-7000); Neutrophils Percent Auto 77.5 % (50-75); Platelet Count 205 X10^3/uL (150-400); Red Blood Cell Count 4.61 X10^6/uL (4.5-5.9); Red Cell Distribution Width 13.5 % (11.6-14.8); White Blood Cell Count 6.8 X10^3/uL (4.5-11.0)
[2018-10-25 16:22] LABS: PTT Partial Thromboplastin Tim 27 SECONDS (26.4-36.2)
[2018-10-25 16:28] LABS: Alanine Aminotransferase 54 IU/L (21-72); Albumin 4.4 g/dL (3.5-5.0); Albumin Globulin Ratio 1.4 (1.0-2.8); Alkaline Phosphatase 110 U/L (38-126); Aspartate Aminotransferase 54 IU/L (17-59); Bilirubin Total 0.5 mg/dL (0.2-1.3); Blood Urea Nitrogen 21 mg/dL (9-20); Calcium 9.7 mg/dL (8.4-10.2); Carbon Dioxide 28 mmol/L (22-32); Chloride 101 mmol/L (98-107); Estimated Glomerular Filt Rate > 60.0 mL/min (>60); Ethanol (ETOH) < 10 mg/dL; Globulin 3.1 g/dL (1.7-4.1); Glucose 185 mg/dL (80-110); HEMOLYSIS < 15 (0-50); Lipase 81 U/L (23-300); Potassium 4.6 mmol/L (3.4-5.1); Sodium 140 mmol/L (137-145); Total Protein 7.5 g/dL (6.3-8.2)
[2018-10-25 16:30] VITALS: BP 155/86
[2018-10-25 16:58] VITALS: PULSE 91; RESP 20; O2SAT 100
[2018-10-25 18:22] VITALS: BP 142/63; PULSE 99; RESP 20; O2SAT 100
[2018-10-25 20:15] VITALS: BP 158/63; PULSE 84; RESP 18; O2SAT 97
--- NOTE | 2018-10-25 20:30 | DI.CT.S_ITS ---
PROCEDURE: CT HEAD/BRAIN WO CON INDICATIONS: compare size of subdural from previous scan at 15:30 TECHNIQUE: Noncontrast 4.5 mm thick angled axial sections acquired from the foramen magnum to the vertex, with coronal and sagittal reformats. For radiation dose reduction, the following was used: automated exposure control, adjustment of mA and/or kV according to patient size. COMPARISON: [facility], CT, CT HEAD/BRAIN WO CON, 10/25/2018, 15:03. FINDINGS: Image quality: Excellent. CSF spaces: Basal cisterns are patent. Small subdural hematoma along the anterior falx appears unchanged. The ventricles are symmetric in size and shape. Brain: No intracranial bleeds or masses. There is mild cerebral volume loss for age, with resultant ventricular and sulcal prominence. There are mild periventricular and deep white matter chronic small vessel ischemic changes. There is intracranial internal carotid artery atherosclerosis. Skull and face: Calvarium and visualized facial bones appear intact, without suspicious lesions. Sinuses: Visualized sinuses and mastoids are clear. IMPRESSION: 1. Stable small subdural hematoma along the anterior floor. 2. Cerebral volume loss and chronic microvascular ischemic changes. Dictated by: Helen Woodson M.D. on 10/25/2018 at 20:59 Approved by: Helen Woodson M.D. on 10/25/2018 at 21:02
[2018-10-25 20:52] LABS: Bacteria Urine None Seen
[2018-10-25 20:55] LABS: RBC Urine 30-100/HPF (0-5/HPF); WBC Urine 1-5/HPF (0-5/HPF)
[2018-10-25 21:52] VITALS: BP 138/60; PULSE 82; RESP 16; O2SAT 98
== END 2018-10-25 21:52 | disposition home or self-care (01) ==
PROVIDERS: Emergency Provider Nurse Practitioner Family; PCP Family Medicine
DX: S06.5X9A Traumatic subdural hemorrhage with loss of consciousness of unspecified duration, initial encounter (principal); S20.219A Contusion of unspecified front wall of thorax, initial encounter; S01.01XA Laceration without foreign body of scalp, initial encounter; R31.9 Hematuria, unspecified; W11.XXXA Fall on and from ladder, initial encounter
CPT/HCPCS: 36591; 70450; 71101; 72125; 80053; 80320; 81003; 81015; 82962; 83690; 85025; 85610; 85730; 86850; 86900; 86901; 90471; 99285; 99291; 90715

== ENCOUNTER → 2019-01-07 08:20 | Outpatient (CLI) | payer OTHER, SELFPAY ==
--- NOTE | 2019-01-07 | DI.US.S_ITS ---
PROCEDURE: US ABD AORTA ANEURYSM SCREEN INDICATIONS: SCREENING TECHNIQUE: Real time scanning was performed of the aorta and iliac arteries, with image documentation. COMPARISON: [facility], , L-SPINE WITHOUT CONTRAST, 08/24/2016, 16:14. FINDINGS: Mild atherosclerotic changes of the abdominal aorta are present. Aorta: Proximal aortic diameter measures 2.0 cm. Mid-aorta measures 1.8 cm. Distal aortic diameter is 1.7 cm. Iliac arteries: Right common iliac artery measures 1.0 cm. Left common iliac artery measures 1.1 cm. IMPRESSION: Abdominal aortic atherosclerosis without evidence of aneurysm. Dictated by: Ricardo Arrington M.D. on 01/07/2019 at 10:09 Approved by: Ricardo Arrington M.D. on 01/07/2019 at 10:11
== END ==
PROVIDERS: PCP Family Medicine; Visit Provider Family Medicine
DX: Z13.6 Encounter for screening for cardiovascular disorders (principal); I70.0 Atherosclerosis of aorta
CPT/HCPCS: 76706

== ENCOUNTER → 2019-01-24 08:01 | Outpatient (CLI) | payer OTHER, SELFPAY ==
--- NOTE | 2019-01-24 | DI.MRI.S_ITS ---
PROCEDURE: MR SHOULDER RT WO CON INDICATIONS: COMPLETE ROTATOR CUFF TEAR OF RIGHT SHOULDER TECHNIQUE: Noncontrast oblique coronal T2 fast spin echo with fat saturation, oblique sagittal T1 spin echo and T2 fast spin echo with fat saturation, axial T1 spin echo and T2 fast spin echo with fat saturation through the shoulder. COMPARISON: [facility], MR, MR SHOULDER RT WO CON, 04/24/2018, 8:26. FINDINGS: Image quality: Motion degraded examination. Rotator cuff: Full-thickness tear at the junction of the supraspinatus and infraspinatus tendons critical zone measuring approximately 1.1 cm in AP dimension as seen on sagittal image 10 series 12. This demonstrates slitlike appearance on the coronal pulse sequences. There is additional partial-thickness articular sided tearing of the infraspinatus tendon. Overall, the appearance is similar to 04/24/18. Mild subscapularis tendinopathy and thickening is noted, probably unchanged. The teres minor appears intact. Diffuse fatty infiltration of the subscapularis, supraspinatus and infraspinatus muscles. Fatty infiltration of the teres minor muscle. No definite atrophy or progression since the prior study. Bones and bursae: No bone marrow contusions or fractures. Moderate hypertrophic acromioclavicular joint degeneration. Moderate glenohumeral degenerative joint disease. The acromion demonstrates conventional anatomy, without an os acromiale. Capsule and soft tissues: Circumferential fraying of the labrum without discrete intrasubstance fluid signal intensity. This is probably age-appropriate. Trace joint effusion. The long head of the biceps tendon demonstrates normal location and morphology. The rotator interval appears normal, without fibrosis. IMPRESSION: Overall, no definite interval change in full-thickness tear at the junction of the supraspinatus and infraspinatus tendons critical zone, in addition to tendinopathy with partial-thickness articular sided tearing of the anterior fascicles of the infraspinatus tendon. Diffuse fatty infiltration of the rotator cuff musculature as before, grossly unchanged appearance Chronic circumferential degenerative fraying of the labrum, probably age-appropriate. Dictated by: Janes Mullen M.D. on 01/24/2019 at 10:35 Approved by: Janes Mullen M.D. on 01/24/2019 at 10:44
== END ==
PROVIDERS: PCP Family Medicine; Visit Provider Orthopaedic Surgery
DX: M75.121 Complete rotator cuff tear or rupture of right shoulder, not specified as traumatic (principal)
CPT/HCPCS: 73221

== ENCOUNTER → 2019-11-20 06:48 | Outpatient (CLI) | payer OTHER, SELFPAY ==
--- NOTE | 2019-11-20 | DI.ECHO.S_ITS ---
[facility] +---------+ : : [address] : : : : [id number] : : : : Phone: [phone] Echocardiogram Report + + :Name: KHURRAM SWARTZ Study Date: 11/20/2019 Height: 68 in : :[facility] Weight: 165 lb : : Gender: Male BSA: 1.9 m2 : :: 1955 Age: 64 yrs BP: 134/82 mmHg: :Reason For Study: MURMUR : :Ordering Physician: [place] : :Mic Performed By: Josafat Hancock : :Referring: DAYTON MEDELLIN : + + Interpretation Summary 1) Normal left ventricular size, thickness, wall motion, and systolic function (EF 60-65%). 2) Normal right ventricular size and function. 3) There is mild aortic stenosis (mean gradient 6mmHg, valve area 1.9cm2). While the aortic valve is trileaflet, the right coronary cusp is calcific and fixed. 4) No prior Echo available for comparison. Procedure: A two-dimensional transthoracic echocardiogram with color flow and Doppler was performed. The study quality was technically adequate. There is no prior echocardiogram noted for this patient. The patient was in normal sinus rhythm during the exam. Left Ventricle: The left ventricle is normal in size. There is normal left ventricular wall thickness. Left ventricular systolic function is normal. The ejection fraction is estimated to be 60-65%. Left ventricular wall motion is normal. Right Ventricle: The right ventricle is normal in size and function. Atria: The left atrial size is normal. Right atrial size is normal. The interatrial septum is intact with no evidence for an atrial septal defect. Mitral Valve: The mitral valve leaflets appear mildly thickened, but open well. There is mild mitral annular calcification. There is no mitral regurgitation noted. Aortic Valve: The aortic valve is moderately calcified. The aortic valve is trileaflet. The aortic valve mean gradient is 6 mmHg. There is mild aortic stenosis. No aortic regurgitation is present. Tricuspid Valve: The tricuspid valve is normal in structure and function. There is trace tricuspid regurgitation. Pulmonary artery pressures cannot be estimated because of the lack of a measurable TR jet velocity. Pulmonic Valve: The pulmonic valve is not well visualized. There is trace pulmonic regurgitation. Great Vessels: The aortic root is normal size. The ascending aorta could not be visualized. The pulmonary artery is normal size. The IVC is of normal diameter and collapses greater than 50% with a sniff. This suggests a low right atrial pressure of 3 mm Hg. Pericardium/ Pleura There is no pericardial effusion. There is no pleural effusion. MMode/2D Measurements & Calculations LVIDd: 4.6 cm LVOT diam: 2.2 cm LVIDs: 3.1 cm Ao root diam: 3.3 cm FS: 32.6 % EPSS: 0.74 cm IVSd: 0.98 cm LVPWd: 1.0 cm LV hdz. diameter/BSA (cm/m^2): 2.5 LV sys. diameter/BSA (cm/m^2): 1.7 LA A2 area: 17.2 cm2 RA long axis: 4.7 cm LA A4 area: 19.7 cm2 RA area: 16.5 cm2 LA length (vol): 4.9 cm RA vol: 49.7 ml LA vol: 59.1 ml RA : 26.4 ml/m2 LA vol index: 31.4 ml/m2 TAPSE: 2.2 cm Doppler Measurements & Calculations Ao V2 max: 165.0 cm/sec LVOT Max Florentino: 84.7 cm/sec Ao V2 mean: 118.5 cm/sec LV V1 max P.9 mmHg Ao max P.9 mmHg LV V1 VTI: 21.2 cm Ao mean P.2 mmHg PIYUSH(I,D): 2.1 cm2 Ao V2 VTI: 38.1 cm PIYUSH(V,D): 1.9 cm2 sev ratio: 0.56 PIYUSH indexed to BSA (cm^2/m^2): 1.1 MV E max florentino: 74.8 cm/sec PA V2 max: 70.2 cm/sec MV A max florentino: 103.9 cm/sec PA V2 mean: 54.7 cm/sec MV E/A: 0.72 PA mean P.3 mmHg Med Peak E' Florentino: 7.9 cm/sec PA Accel Time: 0.11 sec E/E' med: 9.4 Lat Peak E' Florentino: 8.5 cm/sec E/E' lat: 8.8 E/e' average: 9.1 MV dec time: 0.29 sec SV(LVOT): 78.2 ml Reading Physician:02:42 PM
== END ==
PROVIDERS: PCP Family Medicine; Visit Provider Family Medicine
DX: I35.0 Nonrheumatic aortic (valve) stenosis (principal); R01.1 Cardiac murmur, unspecified
CPT/HCPCS: 93306

== ENCOUNTER 2020-06-09 12:58 | Emergency (ER) | payer OTHER, SELFPAY ==
--- NOTE | 2020-06-09 13:06 | DI.RAD.S_ITS ---
PROCEDURE: XR RIBS LT MIN 3V W CXR1V INDICATIONS: Fall w/ left rib pain TECHNIQUE: Three views of the left ribs were acquired, along with a single view chest. COMPARISON: None. FINDINGS: Surgical changes and devices: None. Bones and chest wall: Left posterolateral 8th and 9th nondisplaced rib fractures. No suspicious bony lesions. Overlying soft tissues appear unremarkable. Lungs and pleura: No pleural effusions or pneumothorax. Lungs appear clear. Mediastinum: Mediastinal contours appear normal. Heart size is normal. IMPRESSION: 1. Nondisplaced left 8th and 9th rib fractures. 2. No evidence of underlying chest trauma. Dictated by: Mona Henderson M.D. on 06/09/2020 at 13:03 Approved by: Mona Henderson M.D. on 06/09/2020 at 13:06
[2020-06-09 13:09] VITALS: BP 133/88; PULSE 84; RESP 16; TEMP 36.4; O2SAT 97; BMI 23.6
--- NOTE | 2020-06-09 13:10 | ED_ITS ---
HPI - Fall General Chief Complaint: Fall Stated Complaint: FALL, HIT HIS HEAD, WOUND, RIB PAIN Time Seen by Provider: 06/09/20 13:03 Source: patient Mode of arrival: Ambulatory Limitations: no limitations History of Present Illness HPI Narrative: Patient is a 64-year-old male who presents after a ground level fall he states he was taking the dog out for a walk when he tripped over the concrete hitting his head and somehow landing on his left side. He is mostly complaining of left-sided rib pain. He denies any shortness of breath. He has no loss of consciousness no neck pain. He does have an obvious contusion around his left eye but denies any visual changes. He takes aspirin couple days of week MD complaint: fall Onset (ago): hour(s) Fall from: standing Loss of consciousness: none Prolonged down time: no Related Data Home Medications Medication Instructions Recorded Confirmed insulin glargine [Lantus U-100 20 units SQ BEDTIME #0 03/08/10 01/06/19 Insulin] insulin lispro [Humalog U-100 4 - 12 units SQ AC #0 03/08/10 01/06/19 Insulin] levothyroxine [Synthroid] 0.175 mg PO QDAY #0 03/08/10 01/06/19 budesonide 2 spray INTRANASAL DAILY #0 03/15/10 01/06/19 niacin [Niaspan Extended-Release] 1,000 mg PO BEDTIME #0 03/15/10 01/06/19 Ca carb-Ca gluc-Mg ox-Mg gluco 1 tab PO DAILY #0 09/18/17 01/06/19 [Calcium Magnesium] budesonide-formoterol [Symbicort] 2 inh INH BID #0 09/18/17 01/06/19 cetirizine 10 mg PO DAILY PRN #0 09/18/17 01/06/19 flaxseed 15 ml PO DAILY #0 09/18/17 01/06/19 methocarbamol 500 - 1,000 mg PO Q6HP PRN #0 09/18/17 01/06/19 enalapril maleate 20 mg PO DAILY 10/25/18 01/06/19 glucagon (human recombinant) 1 mg IM DIRECTED 10/25/18 01/06/19 [Glucagon Emergency Kit (human)] Allergies Allergy/AdvReac Type Severity Reaction Status Date / Time No Known Drug Allergies Allergy Verified 01/06/19 13:59 Review of Systems Review of Systems Narrative: GENERAL: Denies chills,fever HEENT: See HPI Denies throat pain RESPIRATORY: See HPI Denies dyspnea, cough, wheezing CARDIOVASCULAR: Denies chest pain, palpitations GASTROINTESTINAL: Denies nausea, vomiting MUSCULOSKELETAL: Denies extremity pain, injury SKIN: Skin abrasion elbow and forehead NEUROLOGIC: Denies weakness, dizziness, headache, numbness 8 point review of systems is negative except for those stated above and HPI Patient History Medical History Hypertension (Acute) Social History Smoking Status: Never smoker Smoking Status: Never smoker alcohol intake frequency: holidays/special occasions only Substance Use Type: does not use Exam Initial Vital Signs Initial Vital Signs: Vital Signs Temperature 97.6 F 06/09/20 13:09 Pulse Rate 84 06/09/20 13:09 Respiratory Rate 16 06/09/20 13:09 Blood Pressure 133/88 06/09/20 13:09 Pulse Oximetry 97 06/09/20 13:09 GENERAL: Well-appearing, well-nourished and in no acute distress. HEENT: Head forehead abrasion left side,EOMI, pupils reactive, swelling noted periorbital left face symmetric, no step-offs periorally, moist mucous membranes CARDIOVASCULAR: Regular rate and rhythm without murmurs, rubs or gallops. RESPIRATORY: Breath sounds equal bilaterally, no wheezes rales or rhonchi. Tender left posterior ribs no flail chest or paradoxical movement ABDOMEN: Soft, nontender. Normoactive bowel sounds all 4 quadrants. No guarding or rebound. EXTREMITIES: Normal range of motion, no clubbing or edema. Neurovascularly intact NEUROLOGICAL: Alert and oriented x4.Normal gait and speech. SKIN: 1 cm laceration left eyebrow, skin abrasion left elbow Procedures Laceration Repair Laceration 1: Site: face Side (If applicable): left Size (cm): 1 Description: linear Depth: simple, single layer Pre-repair: wound explored Skin layer closed with: steri-strips Course Orders Ordered: ED Orders 06/09/20 13:06 XR ribs LT min 3V w CXR1V Stat 06/09/20 13:11 CT head/brain wo con Stat Vital Signs Vital signs: Vital Signs - 8 hr 06/09/20 13:09 06/09/20 13:53 06/09/20 14:00 Temperature 97.6 F Pulse Rate 84 70 68 Respiratory Rate 16 14 17 Blood Pressure 133/88 190/79 H 167/79 H Pulse Oximetry 97 99 99 MDM - Fall Imaging Data CT scan - head: Radiologist's Impression: PROCEDURE: CT HEAD/BRAIN WO CON INDICATIONS: fall TECHNIQUE: Noncontrast 4.5 mm thick angled axial sections acquired from the foramen magnum to the vertex, with coronal and sagittal reformats. For radiation dose reduction, the following was used: automated exposure control, adjustment of mA and/or kV according to patient size. COMPARISON: [facility], CT, CT HEAD/BRAIN WO CON, 10/25/2018, 15:03. [facility], CT, CT HEAD/BRAIN WO CON, 10/25/2018, 20:32. FINDINGS: Image quality: Excellent. CSF spaces: Basal cisterns are patent. No extra-axial fluid collections. The ventricles are symmetric in size and shape. Brain: No intracranial bleeds or masses. There is cerebral volume loss for age, with resultant ventricular and sulcal prominence. There are periventricular and deep white matter chronic small vessel ischemic changes. There is intracranial internal carotid artery atherosclerosis. Skull and face: Left periorbital hematoma is seen. No associated regional fracture is seen on these images. Calvarium and visualized facial bones appear intact, without suspicious lesions. Sinuses: Visualized sinuses and mastoids are clear. Moderate rightward nasal septal deviation is incidentally noted. IMPRESSION: Left periorbital hematoma, without an associated fracture. No acute intracranial hemorrhage is seen. No acute intracranial process is seen. Dictated by: Amos Dawson M.D. on 06/09/2020 at 12:51 Extremity x-ray #1: Radiologist's Impression: PROCEDURE: XR RIBS LT MIN 3V W CXR1V INDICATIONS: Fall w/ left rib pain TECHNIQUE: Three views of the left ribs were acquired, along with a single view chest. COMPARISON: None. FINDINGS: Surgical changes and devices: None. Bones and chest wall: Left posterolateral 8th and 9th nondisplaced rib fractures. No suspicious bony lesions. Overlying soft tissues appear unremarkable. Lungs and pleura: No pleural effusions or pneumothorax. Lungs appear clear. Mediastinum: Mediastinal contours appear normal. Heart size is normal. IMPRESSION: 1. Nondisplaced left 8th and 9th rib fractures. 2. No evidence of underlying chest trauma. Dictated by: oMna Henderson M.D. on 06/09/2020 at 13:03 Discharge Plan Departure Patient Disposition: Home Clinical Impression: Fracture of rib of left side Qualifiers: Encounter type: initial encounter Rib fracture type: multiple ribs Fracture type: closed Qualified Code(s): S22.42XA - Multiple fractures of ribs, left julieta e, initial encounter for closed fracture Closed head injury Qualifiers: Encounter type: initial encounter Qualified Code(s): S09.90XA - Unspecified injury of head, initial encounter Facial laceration Qualifiers: Encounter type: initial encounter Qualified Code(s): S01.81XA - Laceration without foreign body of other part of head, initial encounter Discharge Date/Time: 06/09/20 14:41 Activity Restrictions/Additional Instructions: *You have been diagnosed with left rib fractures, closed head injury *What to do: Pain control only for rib fractures. Recommend using a pill or something to help splint your pain. Use incentive spirometer about 10 times an hour while awake in till pain has improved and you can take a large normal breath without pain. *Continue to take medications as directed Tylenol 1000 mg every 6 hours do not exceed more than 4000 mg in 1 day Ibuprofen 100 mg every 8 hours if needed for pain *Follow up with your primary care provider in 2-3 days *Return to ER if you should have increasing shortness of breath worsening pain or any new, worsening or concerning symptoms Prescriptions: No Action insulin lispro [Humalog U-100 Insulin] 100 unit/mL Solution 4 - 12 units SQ AC Qty: 0 RF: 0 levothyroxine [Synthroid] 175 MCG tablet 0.175 mg PO QDAY Qty: 0 RF: 0 insulin glargine [Lantus U-100 Insulin] 100 unit/mL Solution 20 units SQ BEDTIME Qty: 0 RF: 0 budesonide 32 mcg/actuation [place],Non-Aerosol 2 spray INTRANASAL DAILY Qty: 0 RF: 0 niacin [Niaspan Extended-Release] 1,000 MG tablet extended release 24 hr 1,000 mg PO BEDTIME Qty: 0 RF: 0 cetirizine 10 MG tablet 10 mg PO DAILY PRN (Reason: Allergy Symptoms) Qty: 0 RF: 0 Ca carb-Ca gluc-Mg ox-Mg gluco [Calcium Magnesium] 500 mg calcium -250 mg Tablet 1 tab PO DAILY Qty: 0 RF: 0 flaxseed Powder 15 ml PO DAILY Qty: 0 RF: 0 methocarbamol 500 MG tablet 500 - 1,000 mg PO Q6HP PRN (Reason: Muscle Spasm) Qty: 0 RF: 0 budesonide-formoterol [Symbicort] 80 MCG/4.5 MCG HFA aerosol inhaler 2 inh INH BID Qty: 0 RF: 0 enalapril maleate 20 mg Tablet 20 mg PO DAILY RF: 0 glucagon (human recombinant) [Glucagon Emergency Kit (human)] 1 mg Recon Soln 1 mg IM DIRECTED RF: 0 Referrals: Arias Haile MD [Primary Care Provider] -
[2020-06-09 13:53] VITALS: BP 190/79; PULSE 70; RESP 14; O2SAT 99
[2020-06-09 14:00] VITALS: BP 167/79; PULSE 68; RESP 17; O2SAT 99
== END 2020-06-09 14:41 | disposition home or self-care (01) ==
PROVIDERS: Emergency Provider Emergency Medicine; PCP Family Medicine
DX: S01.81XA Laceration without foreign body of other part of head, initial encounter (principal); S09.90XA Unspecified injury of head, initial encounter; S22.42XA Multiple fractures of ribs, left side, initial encounter for closed fracture; I10 Essential (primary) hypertension; Z79.82 Long term (current) use of aspirin; W01.0XXA Fall on same level from slipping, tripping and stumbling without subsequent striking against object, initial encounter
CPT/HCPCS: 70450; 71101; 99283; 99284

== ENCOUNTER → 2021-08-24 13:08 | Outpatient (CLI) | payer MEDICARE, SELFPAY ==
--- NOTE | 2021-08-24 | DI.US.S_ITS ---
PROCEDURE: US PERIPH VENOUS LOW EXTREM RT INDICATIONS: RIGHT LEG SWELLING TECHNIQUE: Real-time imaging, as well as color and pulse Doppler interrogation, were performed of the lower extremity deep veins from the inguinal ligament to the popliteal fossa. COMPARISON: None. FINDINGS: The common femoral, femoral and popliteal veins are normally compressible, and free of intraluminal thrombus. Color and pulse Doppler demonstrate normal phasic intraluminal flow. There is normal augmentation response to distal compression maneuver. 6.2 x 1.0 x 5.1 centimeter right popliteal cyst. IMPRESSION: 1. No evidence of deep vein thrombosis involving the right lower extremity. 2. Right popliteal cyst. Dictated by: Litzy Shipman MD, PhD on 08/24/2021 at 15:32 Approved by: Litzy Shipman MD, PhD on 08/24/2021 at 15:33
== END ==
PROVIDERS: PCP Family Medicine; Referring Provider Family Medicine; Visit Provider Family Medicine
DX: M79.89 Other specified soft tissue disorders (principal); M71.21 Synovial cyst of popliteal space [Baker], right knee
CPT/HCPCS: 93971

== ENCOUNTER 2022-08-28 10:53 | Emergency (ER) | payer MEDICARE, SELFPAY ==
[2022-08-28] VITALS (8 sets, daily range): BP systolic 154–234; BP diastolic 74–96; PULSE 76–81; RESP 14; TEMP 36.9; O2SAT 98–99; BMI 26.1
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
[2022-08-28] MEDS: TET,DIPH,PERTUSS(ACELL),VAC/PF 0.5 ML SYRINGE IM (12:11)
[2022-08-28] MEDS: LIDOCAINE 2% W/EPI INJ 20 ML (13:15)
== END 2022-08-28 13:52 | disposition home or self-care (01) ==
PROVIDERS: Emergency Provider Emergency Medicine; PCP Family Medicine
DX: S01.01XA Laceration without foreign body of scalp, initial encounter (principal); I10 Essential (primary) hypertension; Z79.82 Long term (current) use of aspirin; W03.XXXA Other fall on same level due to collision with another person, initial encounter; Z23 Encounter for immunization
CPT/HCPCS: 70450; 72125; 90471; 99284; 90715

== ENCOUNTER 2022-12-04 09:09 | Emergency (ER) | payer MEDICARE, SELFPAY ==
[2022-12-04] VITALS (20 sets, daily range): BP systolic 122–179; BP diastolic 56–77; PULSE 77–90; RESP 16–18; TEMP 36.6; O2SAT 95–100
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
[2022-12-04] MEDS: OXYCODONE/ACETAMINOPHEN 5/325 TABLET 1 TAB PO (12:39)
--- NOTE | 2022-12-04 14:16 | PC.NURSE ---
Patient reports his blood glucose is 316 and he would usually take insulin for it, states he will hold off for right now. Updated pt results should be discussed soon.
--- NOTE | 2022-12-12 17:31 | ED_ITS ---
HPI - Extremity Injury (Upper) <Ashlee Mota PA-C - Last Filed: 12/12/22 17:49> General Chief Complaint: Extremity Injury, Upper Stated Complaint: rammed left arm into something yesterday Time Seen by Provider: 12/04/22 10:11 Source: patient Mode of arrival: Ambulatory History of Present Illness HPI narrative: 67-year-old male with past medical history BPH, hypertension, diabetes, hypothyroidism presents to the ED status post a left shoulder and elbow injury sustained just prior to arrival. Patient states that he accidentally hit his left shoulder and elbow on a door, also hit the head on the left side. Patient is not on blood thinners. Patient denies loss of consciousness. Patient denies numbness, tingling, weakness. Patient reports pain in the shoulder and in the elbow. Patient denies chest pain, shortness of breath, nausea, vomiting, abdominal pain, headache. Related Data Home Medications Medication Instructions Recorded Confirmed insulin glargine 100 unit/mL 20 units SQ BEDTIME ##0 03/08/10 10/25/22 subcutaneous solution (Lantus U-100 Insulin) insulin lispro 100 unit/mL 4 - 12 units SQ AC ##0 03/08/10 10/25/22 subcutaneous solution (Humalog U-100 Insulin) levothyroxine 175 mcg tablet 0.175 mg PO QDAY ##0 03/08/10 10/25/22 (Synthroid) niacin 1,000 mg tablet,extended 1,000 mg PO BEDTIME ##0 03/15/10 10/25/22 release 24 hr (Niaspan) enalapril maleate 20 mg tablet 20 mg PO DAILY 10/25/18 10/25/22 glucagon (human recombinant) 1 mg 1 mg IM DIRECTED 10/25/18 10/25/22 solution for injection (Glucagon Emergency Kit) Previous Rx's Medication Instructions Recorded tamsulosin 0.4 mg capsule 0.8 mg PO BEDTIME #180 caps 10/26/22 oxycodone-acetaminophen 5 mg-325 1 tab PO Q4-6H PRN pain #20 tabs 12/04/22 mg tablet (Percocet) Allergies Allergy/AdvReac Type Severity Reaction Status Date / Time No Known Drug Allergies Allergy Verified 12/04/22 09:29 Review of Systems <Ashlee Mota PA-C - Last Filed: 12/12/22 17:49> Review of Systems ROS Unobtainable: All systems reviewed & are unremarkable except as noted in HPI and below Constitutional Constitutional: Denies chills, Denies fatigue, Denies fever(s), Denies frequent falls, Denies lethargy and Denies weakness Eyes Eyes: Denies change in vision, Denies eye discharge, Denies irritation and Denies loss of vision ENT Ears, Nose, Mouth, and Throat: Denies change in voice, Denies dizziness, Denies neck pain, Denies sore throat and Denies throat swelling Cardiovascular Cardiovascular: Denies chest pain, Denies irregular heart rhythm, Denies lighth eadedness, Denies palpitations, Denies dyspnea, Denies dyspnea on exertion and Denies orthopnea Respiratory Respiratory: Denies cough, Denies dyspnea, Denies dyspnea on exertion and Denies wheezing Gastrointestinal Gastrointestinal: Denies abdominal pain, Denies change in bowel habits, Denies diarrhea, Denies nausea and Denies vomiting Genitourinary Genitourinary: Denies hematuria, Denies flank pain, Denies urinary incontinence and Denies urinary urgency Musculoskeletal Musculoskeletal: Denies back pain, Denies muscle weakness, Denies neck pain, Denies numbness and Denies tingling Comments: Left shoulder, elbow pain Integumentary/Breasts Skin/Breast: Denies pruritus, Denies erythema, Denies rash and Denies wounds Neurologic Neurologic: Denies behavioral changes, Denies confusion, Denies dizziness, Denies frequent falls, Denies loss of vision, Denies numbness, Denies tingling and Denies weakness Psychiatric Psychiatric: Denies anxiety, Denies behavioral changes, Denies confusion, Denies depression, Denies homicidal ideation and Denies suicidal ideation Endocrine Endocrine: Denies fatigue, Denies flushing and Denies palpitations Hematologic/Lymphatic Hematologic/Lymphatic: Denies easy bruising Allergic/Immunologic Allergic/Immunologic: Denies urticaria, Denies throat swelling and Denies wheezing Patient History <Ashlee Mota PA-C - Last Filed: 12/12/22 17:49> Medical History BPH w urinary obs/LUTS Hypertension Incomplete bladder emptying Obstructive sleep apnea (adult) (pediatric) Social History Smoking Status: Never smoker Smoking Status: Never smoker alcohol intake frequency: holidays/special occasions only Substance Use Type: does not use Exam <Ashlee Mota PA-C - Last Filed: 12/12/22 17:49> Narrative Exam Narrative: Const General:?cooperative, healthy appearing and comfortable HENMS Head:?normal to inspection; tenderness to palpation to the left parietal area, skin is intact. There is no palpable skull depressions. No hematoma Ears:?hearing grossly normal bilaterally Nose:?external nose normal Face and sinus:?normal facial exam and sinuses nontender Mouth:?oral mucosae normal Throat:?posterior oropharynx normal Eyes General:?appearance normal, both eyes and all related structures Neck Neck:?normal visual inspection and no lymphadenopathy noted Resp Effort & Inspection:?normal respiratory effort Auscultation:?clear to auscultation bilaterally Cardio Rate:?regular rate Rhythm:?regular rhythm Musculoskeletal Tenderness to palpation of left shoulder, elbow. Patient is holding his left arm in adduction close to his trunk. Range of motion is limited by pain. Strength and sensation intact. Patient appears neurovascularly intact. Neuro General:?patient alert, patient awake and patient oriented x3 Initial Vital Signs Initial Vital Signs: Vital Signs Temperature 97.8 F 12/04/22 09:20 Pulse Rate 81 12/04/22 09:20 Respiratory Rate 18 12/04/22 09:20 Blood Pressure 179/73 H 12/04/22 09:20 Pulse Oximetry 99 12/04/22 09:20 Oxygen Delivery Method 12/04/22 09:20 <Alyssa Lai DO - Last Filed: 12/15/22 07:33> Initial Vital Signs Initial Vital Signs: Vital Signs Temperature 97.8 F 12/04/22 09:20 Pulse Rate 81 12/04/22 09:20 Respiratory Rate 18 12/04/22 09:20 Blood Pressure 179/73 H 12/04/22 09:20 Pulse Oximetry 99 12/04/22 09:20 Oxygen Delivery Method 12/04/22 09:20 Course <Ashlee Mota PA-C - Last Filed: 12/12/22 17:49> Orders Ordered: Discontinued Medications Oxycodone/Acetaminophen (Oxycodone/Acetaminophen 5/325 Tablet) 1 tab PO NOW ONE Stop: 12/04/22 12:27 Last Admin: 12/04/22 12:39 Dose: 1 tab Documented By: AT <Alyssa Lai DO - Last Filed: 12/15/22 07:33> Orders Ordered: Discontinued Medications Oxycodone/Acetaminophen (Oxycodone/Acetaminophen 5/325 Tablet) 1 tab PO NOW ONE Stop: 12/04/22 12:27 Last Admin: 12/04/22 12:39 Dose: 1 tab Documented By: AT [facility] - Extremity Injury (Upper) <Ashlee Mota PA-C - Last Filed: 12/12/22 17:49> [facility] Narrative Medical decision making narrative: 67-year-old male with past medical history BPH, hypertension, diabetes, hypothyroidism presents to the ED status post a left shoulder and elbow injury sustained just prior to arrival. Concern for intracranial hemorrhage versus fracture/dislocation versus musculoskeletal sprain/strain. Obtained CT head, CT C-spine with no acute findings. X-rays of the left shoulder and elbow sug gestive of a fracture, CT recommended for further evaluation. CT obtained which shows acute slightly impacted and minimally displaced fracture through the proximal humeral shaft/surgical neck with surrounding soft tissue swelling and edema. The CT did not show a acute radial head fracture, no significant elbow joint effusion. Patient's pain was well controlled in the ED with Percocet. Patient was fitted in a sling, findings discussed, recommend ortho follow-up. Patient agrees to follow-up with ortho. ED return precautions were discussed with patient. Patient verbalized understanding. Discharge Plan Departure Patient Disposition: Home Clinical Impression: Fx humeral neck Instructions: DI for Humeral Fracture Activity Restrictions/Additional Instructions: You were evaluated in the ED today for a shoulder and elbow injury your CT did show a fracture involving your left proximal humerus in the region of your shoulder. The treatment for this type of fracture is to immobilize your arm and shoulder with a sling. Please also follow-up with [facility] at [phone] as soon as possible for further evaluation and treatment. You may take Percocet, Tylenol, ibuprofen for pain as needed. Return to the ED if your symptoms worsen, you experience numbness, tingling, weakness. Prescriptions: New oxycodone-acetaminophen [Percocet] 5-325 mg tablet 1 tab PO Q4-6H PRN (Reason: pain) Qty: 20 0RF No Action insulin lispro [Humalog U-100 Insulin] 100 unit/mL Solution 4 - 12 units SQ AC Qty: 0 Label Comments: sliding scale levothyroxine [Synthroid] 175 MCG tablet 0.175 mg PO QDAY Qty: 0 insulin glargine [Lantus U-100 Insulin] 100 unit/mL Solution 20 units SQ BEDTIME Qty: 0 niacin [Niaspan Extended-Release] 1,000 MG tablet extended release 24 hr 1,000 mg PO BEDTIME Qty: 0 enalapril maleate 20 mg Tablet 20 mg PO DAILY glucagon (human recombinant) [Glucagon Emergency Kit (human)] 1 mg Recon Soln 1 mg IM DIRECTED tamsulosin 0.4 mg capsule 0.8 mg PO BEDTIME Qty: 180 3RF Referrals: Arias Haile MD [Primary Care Provider] - Stand Alone Forms: Patient Portal/API <Alyssa Lai DO - Last Filed: 12/15/22 07:33> Cosign ED Attending Divinaature Attestation: I was immediately available in the department for consultation. Documentation has been reviewed.
== END 2022-12-04 14:54 | disposition home or self-care (01) ==
PROVIDERS: Emergency Provider Student in an Organized Health Care Education/Training Program; PCP Family Medicine
DX: S42.292A Other displaced fracture of upper end of left humerus, initial encounter for closed fracture (principal); W22.8XXA Striking against or struck by other objects, initial encounter; Z79.899 Other long term (current) drug therapy
CPT/HCPCS: 70450; 72125; 73030; 73080; 73200; 99284

== ENCOUNTER 2023-05-20 07:23 | Emergency (ER) | payer MEDICARE, SELFPAY ==
[2023-05-20 07:28] VITALS: BP 161/70; PULSE 82; RESP 16; TEMP 36.7; O2SAT 99; BMI 24.6
--- NOTE | 2023-05-20 08:45 | DI.RAD.S_ITS ---
PROCEDURE: XR CHEST 1V INDICATIONS: fall, right rib pain TECHNIQUE: One view of the chest was acquired. COMPARISON: None. FINDINGS: Surgical changes and devices: None. Lungs and pleura: Lungs are clear. No pleural effusions or pneumothorax. Mediastinum: Mediastinal contours appear normal. Heart size is normal. Bones and chest wall: No suspicious bony lesions. Chronic appearing bilateral posterior lateral mid rib deformities are seen. Overlying soft tissues appear unremarkable. IMPRESSION: Chronic appearing bilateral posterior lateral mid rib fractures. No evidence of gross displaced acute rib fracture. No acute cardiopulmonary pathology. Dictated by: Taiwo Lal M.D. on 05/20/2023 at 9:10 Approved by: Taiwo Lal M.D. on 05/20/2023 at 9:11
--- NOTE | 2023-05-20 08:46 | ED_ITS ---
HPI - Fall General Chief Complaint: Fall Stated Complaint: Fall, head/elbow injury Time Seen by Provider: 05/20/23 08:37 Source: patient Mode of arrival: EMS Limitations: no limitations History of Present Illness HPI Narrative: This is a 67-year-old male with history of hypertension, insulin-dependent diabetes on prior cervical surgery. Patient states he was out for his regular morning walk he caught his foot on uneven edge on the sidewalk and fell striking the left side of his head, left chest and elbow and has some abrasions on his fingers on small avulsion injuries. Patient states no loss of consciousness. No headache. No neck pain. No back pain. No shortness of breath he has some left chest discomfort thinks he may have broken a rib. He denies any dizziness, no nausea or vomiting, no numbness, tingling or weakness. No other GI or urinary symptoms. Patient's tetanus is up-to-date as of 2020. He does take a baby aspirin daily, is history of hypertension, insulin-dependent diabetes he does have his monitor on and states he is a little high this morning but otherwise no changes. Patient states he is had prior neck surgeries. Denies any drug allergies. No tobacco, occasional alcohol none this morning, no illicit. Dr. Haile's his primary care. Related Data Home Medications Medication Instructions Recorded Confirmed insulin glargine 100 unit/mL 20 units SQ BEDTIME ##0 03/08/10 03/13/23 subcutaneous solution (Lantus U-100 Insulin) insulin lispro 100 unit/mL 4 - 12 units SQ AC ##0 03/08/10 03/13/23 subcutaneous solution (Humalog U-100 Insulin) levothyroxine 175 mcg tablet 0.175 mg PO QDAY ##0 03/08/10 03/13/23 (Synthroid) niacin 1,000 mg tablet,extended 1,000 mg PO BEDTIME ##0 03/15/10 03/13/23 release 24 hr (Niaspan) enalapril maleate 20 mg tablet 20 mg PO DAILY 10/25/18 03/13/23 glucagon (human recombinant) 1 mg 1 mg IM DIRECTED 10/25/18 03/13/23 solution for injection (Glucagon Emergency Kit) Previous Rx's Medication Instructions Recorded tamsulosin 0.4 mg capsule 0.8 mg PO BEDTIME #180 caps 10/26/22 oxycodone-acetaminophen 5 mg-325 1 tab PO Q4-6H PRN pain #20 tabs 12/04/22 mg tablet (Percocet) Allergies Allergy/AdvReac Type Severity Reaction Status Date / Time No Known Drug Allergies Allergy Verified 03/13/23 09:20 Review of Systems Review of Systems ROS Unobtainable: All systems reviewed & are unremarkable except as noted in HPI and below Patient History Medical History BPH w urinary obs/LUTS Hypertension Incomplete bladder emptying Obstructive sleep apnea (adult) (pediatric) Social History Smoking Status: Never smoker Smoking Status: Never smoker alcohol intake frequency: holidays/special occasions only Substance Use Type: does not use Exam Narrative Exam Narrative: GEN: Patient appears in mild distress. HEAD: Patient has abrasion and a small lack over the left brow that is slightly gapped the entire sent 3 cm but the portion that is gapped and deeper is about 0.75 cm, no raccoon/Gonzales sign. NECK: Nontender, painless range of motion, trachea midline Negative Nexus criteria, there is no midline line tenderness, distracting injury, altered mental status, neuro deficit, recent EtOH. EYES: PERRLA, EOMI ENT: External inspection normal, trachea is midline, TM's are normal no hemotypanum, Nares are clear, no septal hematoma, no dental or oral injury, airway is normal and with normal occlusion, No bony tenderness RESP: Chest is n mildly tender left lateral, there is a small amount of ecchymosis, and has symmetric movement, no ecchymosis, breath sounds are normal no crackles, wheezes or rales CVS: Heart sounds are normal, no murmur noted, No JVD. ABG/GI: Nontender, soft, normal bowel sounds, no distention, no organomegaly, pelvic rock is negative NEURO: Oriented AOx3, neuro is grossly intact, sensation and motor is normal all 4 extremities moving, cranial nerves II through XII are intact, GCS is 15 PSYCH: Normal mood and affect SKIN: Patient has a large skin tear on his left elbow, patient also has some small superficial avulsion lacerations on his fingers. warm and dry, no crepitus and without decubitus BACK: No CVA tenderness, no vertebral tenderness, no step-off's, no crepitus EXT: Atraumatic, hips are nontender, no pedal edema, normal color and temperature, normal range of motion of extremities with normal tendon exam, 2+ pulses in all four extremities Initial Vital Signs Initial Vital Signs: Vital Signs Temperature 98.1 F 05/20/23 07:28 Pulse Rate 82 05/20/23 07:28 Respiratory Rate 16 05/20/23 07:28 Blood Pressure 161/70 H 05/20/23 07:28 Pulse Oximetry 99 05/20/23 07:28 Oxygen Delivery Method Room Air 05/20/23 07:28 Procedures Laceration Repair Laceration 1: Site: face Side (If applicable): left Size (cm): 0.75 Description: irregular Depth: simple, single layer Local Anesthetic: lidocaine 2% Amount of anesthesia used (mL): 3 Pre-repair: wound explored, irrigated extensively and deep structures intact Skin layer closed with: vicryl Skin layer suture size: 5-0 Number of sutures: 3 Technique: simple, interrupted Course Orders Ordered: ED Orders 05/20/23 08:45 Chest [XR chest 1V] Stat Discontinued Medications Lidocaine HCl (Lidocaine 2% Inj Sdv 5ml) 5 ml INJ INTRA-OP ONE Stop: 05/20/23 08:46 Last Admin: 05/20/23 09:17 Dose: 5 ml Documented By: NICOLE Vital Signs Vital signs: Vital Signs - 8 hr 05/20/23 07:28 05/20/23 09:46 Temperature 98.1 F Pulse Rate 82 84 Respiratory Rate 16 16 Blood Pressure 161/70 H 143/63 H Pulse Oximetry 99 98 Oxygen Delivery Method Room Air Room Air MDM - Fall Imaging Data Chest x-ray: Radiologist's Impression: [address] [address] XRay Report Signed Patient: Danny Van MR#: [id number] : 1955 Acct:[id number] Age/Sex: 67 / M Date of Service: 05/20/23 Loc: ED Accession Number: [id number] ?? Procedure: XR chest 1V Ordering Provider: Alyssa Lai D.O. PROCEDURE:? XR CHEST 1V ? INDICATIONS:? fall, right rib pain ? TECHNIQUE:? One view of the chest was acquired.? ? COMPARISON:? None. ? FINDINGS:? ? Surgical changes and devices:? None.? ? Lungs and pleura:? Lungs are clear.? No pleural effusions or pneumothorax.? ? Mediastinum:? Mediastinal contours appear normal.? Heart size is normal.? ? Bones and chest wall:? No suspicious bony lesions.? Chronic appearing bilateral posterior lateral mid rib deformities are seen.? Overlying soft tissues appear unremarkable.? ? IMPRESSION:? Chronic appearing bilateral posterior lateral mid rib fractures.? No evidence of gross displaced acute rib fracture.? No acute cardiopulmonary pathology. ? ? Dictated by: Taiwo Lal M.D. on 05/20/2023 at 9:10 ? ? Approved by: Taiwo Lal M.D. on 05/20/2023 at 9:11?? MDM Narrative Medical decision making narrative: This is a 67-year-old male anticoagulants aspirin who had a ground level fall after tripping on the edge of a sidewalk while for out for a walk. Does have abrasion/laceration on his brow that requires repair, patient very politely defers head CT we did discuss he is some increased risk with his aspirin he is no other symptoms currently. Discussed return precautions if he becomes asymptomatic. We did review risks versus benefits of imaging. He is agreeable to chest x-ray he does have some rib pain. No other obvious fractures or changes requiring imaging at this time. Patient's tetanus is up-to-date, lace ration was repaired. Patient's wounds were cleansed and dressed. Discussed return precautions. Discharge Plan Departure Patient Disposition: Home Clinical Impression: Fall, Laceration of eyebrow, left, Skin tear of elbow without complication, Closed rib fracture Instructions: Closed Head Injury, How to Care for Absorbable Sutures Activity Restrictions/Additional Instructions: Your sutures are absorbable, they do not need to be removed but ever are still present at 7-10 days follow up for removal. Your chest x-ray did not show any new fractures but I suspect you do have a rib fracture on your left side. You may take Tylenol a 1000 mg every 6 hours as needed for pain. Wound Care: Keep wound(s) clean and dry. Wash daily with soap and water only. Do not use over the counter products (alcohol or peroxide)on the wounds unless instructed by a physician. If wound condition worsens (increased/expanding redness, developing fluid blisters, or worsening pain), either contact your doctor for an urgent re- assessment , or return to the Emergency Department. Return to the Emergency Department for any new or worsening symptoms. Return if fever greater than 100.4 Fahrenheit, increased swelling, increasing pain or worsening symptoms such as increased discharge or spreading redness. Severe headaches, altered mental status or confusion, new neck or back pain, persistent vomiting, new numbness, tingling or weakness, increasing chest pain or shortness of breath, lightheadedness or passing out or other new or concerning changes. Prescriptions: No Action insulin lispro [Humalog U-100 Insulin] 100 unit/mL Solution 4 - 12 units SQ AC Qty: 0 Patient Comments: sliding scale levothyroxine [Synthroid] 175 MCG tablet 0.175 mg PO QDAY Qty: 0 insulin glargine [Lantus U-100 Insulin] 100 unit/mL Solution 20 units SQ BEDTIME Qty: 0 niacin [Niaspan Extended-Release] 1,000 MG tablet extended release 24 hr 1,000 mg PO BEDTIME Qty: 0 oxycodone-acetaminophen [Percocet] 5-325 mg tablet 1 tab PO Q4-6H PRN (Reason: pain) Qty: 20 0RF enalapril maleate 20 mg Tablet 20 mg PO DAILY glucagon (human recombinant) [Glucagon Emergency Kit (human)] 1 mg Recon Soln 1 mg IM DIRECTED tamsulosin 0.4 mg capsule 0.8 mg PO BEDTIME Qty: 180 3RF Referrals: Arias Haile MD [Primary Care Provider] - Stand Alone Forms: Patient Portal/API
[2023-05-20] MEDS: LIDOCAINE 2% INJ SDV 5ML 5 ML INJ (09:17)
[2023-05-20 09:46] VITALS: BP 143/63; PULSE 84; RESP 16; O2SAT 98
== END 2023-05-20 09:46 | disposition home or self-care (01) ==
PROVIDERS: Emergency Provider Emergency Medicine; PCP Family Medicine
DX: S22.31XA Fracture of one rib, right side, initial encounter for closed fracture (principal); S01.112A Laceration without foreign body of left eyelid and periocular area, initial encounter; W01.10XA Fall on same level from slipping, tripping and stumbling with subsequent striking against unspecified object, initial encounter; Y93.01 Activity, walking, marching and hiking
CPT/HCPCS: 12011; 71045; 99282; 99283

== ENCOUNTER → 2023-06-06 17:49 | Outpatient (CLI) | payer MEDICARE, SELFPAY ==
--- NOTE | 2023-06-06 | DI.RAD.S_ITS ---
PROCEDURE: XR KNEE LT 4V INDICATIONS: lt leg pain TECHNIQUE: 3 views of the knee were acquired. COMPARISON: [facility], , KNEE 1-2 VIEWS RIGHT, 03/15/2010, 10:40. FINDINGS: Bones: No fractures or dislocations. No suspicious bony lesions. Mild tricompartmental knee joint space narrowing with periarticular osteophyte formation, most notably involving the lateral femorotibial joint. Mild lateral patellar tilt and migration. Soft tissues: Small joint effusion. No suspicious soft tissue calcifications. IMPRESSION: 1. Tricompartmental knee joint degeneration, most notably involving the lateral femorotibial joint. Dictated by: Julio Cesar Tomlin [facility] Interpreted: Taiwo Lal MD on 06/06/2023 at 20:30 Transcribed by: ETHAN on 06/06/2023 at 20:31 Approved by: Taiwo Lal M.D. on 06/07/2023 at 12:55
== END ==
PROVIDERS: PCP Family Medicine; Referring Provider Family Medicine; Visit Provider Family Medicine
DX: M17.12 Unilateral primary osteoarthritis, left knee (principal); M79.605 Pain in left leg
CPT/HCPCS: 73564

== ENCOUNTER → 2023-06-07 08:53 | Outpatient (ROUT) | payer MEDICARE, SELFPAY ==
[2023-06-07 08:59] LABS: Add Manual Diff / Slide Review NO; Basophils Absolute Auto 0 /uL (0-100); Basophils Percent Auto 0.6 % (0-2); Eosinophils Absolute Auto 200 /uL (0-450); Eosinophils Percent Auto 2.7 % (2-4); Hematocrit 39.9 % (41-53); Hemoglobin 13.7 g/dL (13.5-17.5); Lymphocytes Absolute Auto 1500 /uL (1100-4500); Lymphocytes Percent Auto 22.2 % (25-40); Mean Corpuscular HGB Conc 34.4 % (30-36); Mean Corpuscular Hemoglobin 33.4 PG (26-34); Mean Corpuscular Volume 97.1 fL (80-100); Monocytes Absolute Auto 400 /uL (0-900); Monocytes Percent Auto 6.1 % (3-14); Neutrophils Absolute Auto 4500 /uL (1500-7000); Neutrophils Percent Auto 68.4 % (50-75); Platelet Count 297 X10^3/uL (150-400); Red Blood Cell Count 4.11 X10^6/uL (4.5-5.9); Red Cell Distribution Width 13.8 % (11.6-14.8); White Blood Cell Count 6.6 X10^3/uL (4.5-11.0)
== END ==
PROVIDERS: PCP Family Medicine; Visit Provider Family Medicine
DX: M79.605 Pain in left leg (principal)
CPT/HCPCS: 85025

== ENCOUNTER → 2023-06-07 16:31 | Outpatient (CLI) | payer MEDICARE, SELFPAY ==
--- NOTE | 2023-06-07 | DI.US.S_ITS ---
PROCEDURE: US PERIPH VENOUS LOW EXTREM LT INDICATIONS: LEFT LEG PAIN TECHNIQUE: Real-time imaging, as well as color and pulse Doppler interrogation, were performed of the lower extremity deep veins from the inguinal ligament to the popliteal fossa, with documentation of the visualized calf veins. COMPARISON: None. FINDINGS: There is nonocclusive thrombus involving the distal left superficial femoral vein. Remainder of the deep venous vessels appear patent. IMPRESSION: Nonocclusive deep venous thrombosis involving the distal segment the left superficial femoral vein. Dictated by: Donaldo Ornelas M.D. on 06/07/2023 at 17:16 Approved by: Donaldo Ornelas M.D. on 06/07/2023 at 17:17
== END ==
PROVIDERS: PCP Family Medicine; Referring Provider Family Medicine; Visit Provider Family Medicine
DX: I82.812 Embolism and thrombosis of superficial veins of left lower extremity (principal); M79.605 Pain in left leg
CPT/HCPCS: 85025; 93971

== ENCOUNTER 2023-10-01 09:29 | Day surgery (SDC) | payer MEDICARE, SELFPAY ==
[2023-09-26 08:21] VITALS: BMI 27.3
[2023-10-01] MEDS: LACTATED RINGERS 1,000 ML 120 ML IV (10:21)
[2023-10-01] MEDS: ACETAMINOPHEN IV 1,000 MG/100 ML VIAL 400 MG IV (10:21)
[2023-10-01 10:28] VITALS: BP 167/67; PULSE 81; RESP 17; TEMP 36.6; O2SAT 97; BMI 27.3
--- NOTE | 2023-10-01 10:45 | PM.PREOP ---
Pre-operative Note Interval Note History & Physical reviewed/Exam performed by Physician: Yes Changes to H&P: No
--- NOTE | 2023-10-01 11:21 | SUR.PREOP ---
1100 - Pt took eliquis last night. I hadd a blood clot behind my left knee. Pt has been on med since June. He states was not informed to stop prior to surgery. Surgery cancelled per Dr Moreno. Awaiting talk with Dr Springer.
--- NOTE | 2023-10-01 11:55 | SUR.PREOP ---
Procedure cancelled. Pt Eliquis not stopped.
== END 2023-10-01 09:30 | disposition home or self-care (01) ==
LOC: OR 09:30 → AC 12:12
PROVIDERS: PCP Family Medicine; Referring Provider Specialist; Visit Provider Specialist
DX: N32.0 Bladder-neck obstruction (principal); R33.9 Retention of urine, unspecified; Z53.09 Procedure and treatment not carried out because of other contraindication
CPT/HCPCS: 52601; J0131; J1100; J2405; J2704; J3010

== ENCOUNTER → 2024-01-21 06:46 | Outpatient (CLI) | payer MEDICARE, SELFPAY ==
[2024-01-21 08:28] LABS: Hemoglobin A1C% w Est Avg Glu 6.5 % (4.0-6.0)
[2024-01-21 08:38] LABS: Creatinine Urine Random 90.8 mg/dL
[2024-01-21 08:42] LABS: BUN Creatinine Ratio 39.7 (6-22); Blood Urea Nitrogen 23 mg/dL (9-20); Calcium 9.4 mg/dL (8.4-10.2); Carbon Dioxide 31 mmol/L (22-32); Chloride 105 mmol/L (98-107); Cholesterol 196 mg/dL (140-199); Estimated Glomerular Filt Rate > 60 mL/min (>60); Glucose 151 mg/dL (80-110); HDL Cholesterol 99 mg/dL (40-60); HEMOLYSIS < 15 (0-50); LDL Cholesterol Calculated 90 mg/dL (<100); Potassium 5.1 mmol/L (3.4-5.1); Sodium 137 mmol/L (137-145); Triglycerides 37 mg/dL (35-150)
[2024-01-21 08:45] LABS: Microalbumi Creatinin Ratio Ur 23.1 ug/mg CR (<30); Microalbumin Urine Random 2.1 mg/dL (0-1.6)
== END ==
PROVIDERS: PCP Family Medicine; Referring Provider Internal Medicine Endocrinology, Diabetes & Metabolism; Visit Provider Internal Medicine Endocrinology, Diabetes & Metabolism
DX: E10.3519 Type 1 diabetes mellitus with proliferative diabetic retinopathy with macular edema, unspecified eye (principal)
CPT/HCPCS: 36415; 80048; 80061; 82043; 82570; 83036

== ENCOUNTER 2024-03-08 09:19 | Emergency (ER) | payer MEDICARE, SELFPAY ==
[2024-03-08 09:24] VITALS: BP 160/70; PULSE 78; RESP 14; TEMP 36.3; O2SAT 99; BMI 25.1
--- NOTE | 2024-03-08 09:30 | DI.RAD.S_ITS ---
PROCEDURE: XR WRIST LT 2V INDICATIONS: fall/swelling TECHNIQUE: 4 views of the wrist were acquired. COMPARISON: [facility], CR, XR FOREARM LT 2V, 03/08/2024, 9:31. [facility], CR, WRIST MINIMUM 3 VIEWS RIGHT, 09/18/2017, 10:10. FINDINGS: Bones: There is a distal radius fracture seen, with mild impaction and intra-articular involvement. No complaining ulnar fracture can be seen. No navicular fractures are seen. Degenerative changes are seen throughout, which are most prominent involving the 1st carpometacarpal joint. Milder degenerative changes are seen elsewhere. Soft tissues: No suspicious soft tissue calcifications. IMPRESSION: Distal radius fracture. Dictated by: Amos Dawson M.D. on 03/08/2024 at 8:52 Approved by: Amos Dawson M.D. on 03/08/2024 at 8:53
--- NOTE | 2024-03-08 09:30 | DI.RAD.S_ITS ---
PROCEDURE: XR FOREARM LT 2V INDICATIONS: fall/swelling TECHNIQUE: 2 views of the forearm were acquired. COMPARISON: [facility], CR, XR ELBOW 1 OR 2 VIEWS LEFT, 01/23/2023, 9:14. [facility], CR, XR WRIST LT 2V, 03/08/2024, 9:31. FINDINGS: Bones: There is a mildly displaced, mildly impacted fracture of the distal radius, with intra-articular involvement. No accompanying fracture of the ulna can be seen. No fractures of the more proximal bones can be seen. Degenerative changes are seen throughout, which are most prominent involving the 1st carpometacarpal joint. Milder degenerative changes are seen elsewhere. Soft tissues: No suspicious soft tissue calcifications or masses. IMPRESSION: Distal radius fracture. Dictated by: Amos Dawson M.D. on 03/08/2024 at 8:50 Approved by: Amos Dawson M.D. on 03/08/2024 at 8:51
--- NOTE | 2024-03-08 11:30 | PC.NURSE ---
patient states his CGM is reading over 400. he declines any insulin from us and would like to go home to take his normal stuff. states he is very stress right now and his blood sugar is not normally this high. pt does voice concerns that he wonders how he is going to draw up his insulin.
--- NOTE | 2024-03-08 11:43 | ED.UPPEXIN ---
HPI - Extremity Injury (Upper) <Vanita Khoury PA-C - Last Filed: 03/08/24 14:43> General Chief Complaint: Extremity Injury, Upper Stated Complaint: lt wrist poss broken Time Seen by Provider: 03/08/24 11:13 Source: patient Mode of arrival: Ambulatory History of Present Illness HPI narrative: 68-year-old male with past medical history of type 1 diabetes here today for an injury to his left wrist. States he was carrying heavy bag in his driveway yesterday when he stumbled and fell landing on his left wrist. He denies sustaining any other injuries. He has been unable to move his wrist due to pain and states he woke up this morning and it felt worse. No prior injury to the left wrist. He has some slight tingling in the fingers of the left hand. He states his diabetes is normally stable with his insulin but due to the stress of being injured and poor diet yesterday and today his blood sugars are elevated. States they were over 200 when he woke up and took his Lantus and he thinks he did not take enough Humalog so now his blood sugars over 300. He otherwise feels fine, no nausea vomiting headache. Related Data Home Medications Medication Instructions Recorded Confirmed insulin glargine 100 unit/mL 20 units SQ BEDTIME ##0 03/08/10 11/12/23 subcutaneous solution (Lantus U-100 Insulin) insulin lispro 100 unit/mL 4 - 12 units SQ AC ##0 03/08/10 11/12/23 subcutaneous solution (Humalog U-100 Insulin) levothyroxine 175 mcg tablet 0.175 mg PO QDAY ##0 03/08/10 11/12/23 (Synthroid) niacin 1,000 mg tablet,extended 1,000 mg PO BEDTIME ##0 03/15/10 11/12/23 release 24 hr (Niaspan) aspirin 81 mg tablet 81 mg PO DAILY 03/08/24 03/08/24 Previous Rx's Medication Instructions Recorded tamsulosin 0.4 mg capsule 0.8 mg (2 x 0.4 mg) PO BEDTIME 10/26/22 #180 caps enalapril maleate 20 mg tablet 30 mg (1.5 x 20 mg) PO DAILY #90 11/12/23 tabs Allergies Allergy/AdvReac Type Severity Reaction Status Date / Time No Known Drug Allergies Allergy Verified 11/12/23 09:37 Review of Systems <Vanita Khoury PA-C - Last Filed: 03/08/24 14:43> Review of Systems ROS Unobtainable: All systems reviewed & are unremarkable except as noted in HPI and below Patient History <Vanita Khoury PA-C - Last Filed: 03/08/24 14:43> Medical History (Updated 03/08/24 @ 11:48 by Vanita Khoury PA-C) History of DVT (deep vein thrombosis) Diabetes mellitus (~1975) Thyroid disease Insulin dependent diabetes mellitus Obstructive sleep apnea (adult) (pediatric) Incomplete bladder emptying BPH w urinary obs/LUTS Hypertension Surgical History (Updated 11/11/23 @ 18:11 by Genet Purdy) Anesthesia History of knee replacement Hx of cervical spine surgery Family History (Updated 11/11/23 @ 18:12 by Genet Purdy) Father History of heart disease Mother Alzheimer's disease Social History household members: spouse Smoking Status: Never smoker alcohol intake: current Smoking Status: Never smoker alcohol intake frequency: a few times a week Substance Use Type: marijuana Exam <Vanita Khoury PA-C - Last Filed: 03/08/24 14:43> Narrative Exam Narrative: GENERAL: Well-developed, well-nourished, appears stated age. In no acute distress HEAD: Atraumatic. Normocephalic. EYES: Pupils equal round and reactive. Extraocular motions intact. No scleral icterus. No injection or drainage. ENT: Nose without bleeding, purulent drainage. Airway patent. NECK: Trachea midline. Non tender RESPIRATORY: Respiratory rate and effort normal EXTREMITIES: Left wrist with no obvious deformity other than mild swelling on the radial aspect. Tenderness present over the distal radius. No snuffbox tenderness. Normal sensation, cap refill, distal pulses and motor function in the left hand. NEURO: AOx3. SKIN: No rash or erythema of visible areas Initial Vital Signs Initial Vital Signs: Vital Signs Temperature 97.4 F L 03/08/24 09:24 Pulse Rate 78 03/08/24 09:24 Respiratory Rate 14 03/08/24 09:24 Blood Pressure 160/70 H 05/04/24 09:24 Pulse Oximetry 99 03/08/24 09:24 Oxygen Delivery Method Room Air 03/08/24 09:24 <DO Audra Catherine Last Filed: 03/09/24 07:27> Initial Vital Signs Initial Vital Signs: Vital Signs Temperature 97.4 F L 03/08/24 09:24 Pulse Rate 78 03/08/24 09:24 Respiratory Rate 14 03/08/24 09:24 Blood Pressure 160/70 H 03/08/24 09:24 Pulse Oximetry 99 03/08/24 09:24 Oxygen Delivery Method Room Air 03/08/24 09:24 Procedures <MARLI Ly Last Filed: 03/08/24 14:43> Orthopedic Splinting/Casting Injury #1: Time of procedure: 11:45 Side: left Upper Extremity Injury Location: wrist Upper Extremity Immobilizer: sugar tong splint Post splinting neuro exam: intact Post splinting vascular exam: intact Placed by: Nursing Additional Comments: Checked by provider, [facility] intact, no patient complaints Course <MARLI Ly Last Filed: 03/08/24 14:43> Orders Ordered: ED Orders 03/08/24 09:30 XR forearm LT 2V Stat XR wrist LT 2V Stat Vital Signs Vital signs: Vital Signs - 8 hr 03/08/24 09:24 03/08/24 11:46 Temperature 97.4 F L Pulse Rate 78 82 Respiratory Rate 14 18 Blood Pressure 160/70 H 147/66 H Pulse Oximetry 99 99 Oxygen Delivery Method Room Air Room Air <DO Audra Catherine Last Filed: 03/09/24 07:27> Orders Ordered: ED Orders 03/08/24 09:30 XR forearm LT 2V Stat XR wrist LT 2V Stat Vital Signs Vital signs: Vital Signs - 8 hr 03/08/24 09:24 03/08/24 11:46 Temperature 97.4 F L Pulse Rate 78 82 Respiratory Rate 14 18 Blood Pressure 160/70 H 147/66 H Pulse Oximetry 99 99 Oxygen Delivery Method Room Air Room Air MDM - Extremity Injury (Upper) <MARLI Ly Last Filed: 03/08/24 14:43> Lab Data Labs: Point of Care Testing Glucose POC 390 Imaging Data Extremity x-ray #1: Radiologist's Impression: [address] [address] XRay Report Signed Patient: Danny Van MR#: [id number] : 1955 Acct:[id number] Age/Sex: 68 / M Date of Service: 03/08/24 Loc: ED Accession Number: [id number] Procedure: XR wrist LT 2V Ordering Provider: Sarina Mendoza D.O. PROCEDURE: XR WRIST LT 2V INDICATIONS: fall/swelling TECHNIQUE: 4 views of the wrist were acquired. COMPARISON: [facility], , XR FOREARM LT 2V, 03/08/2024, 9:31. [facility], , WRIST MINIMUM 3 VIEWS RIGHT, 09/18/2017, 10:10. FINDINGS: Bones: There is a distal radius fracture seen, with mild impaction and intra-articular involvement. No complaining ulnar fracture can be seen. No navicular fractures are seen. Degenerative changes are seen throughout, which are most prominent involving the 1st carpometacarpal joint. Milder degenerative changes are seen elsewhere. Soft tissues: No suspicious soft tissue calcifications. IMPRESSION: Distal radius fracture. Dictated by: Amos Dawson M.D. on 03/08/2024 at 8:52 Approved by: Amos Dawson M.D. on 03/08/2024 at 8:53 Extremity x-ray #2: Radiologist's Impression: [address] [address] XRay Report Signed Patient: Danny Van MR#: [id number] : 1955 Acct:[id number] Age/Sex: 68 / M Date of Service: 03/08/24 Loc: ED Accession Number: [id number] Procedure: XR forearm LT 2V Ordering Provider: Sarina Mendoza D.O. PROCEDURE: XR FOREARM LT 2V INDICATIONS: fall/swelling TECHNIQUE: 2 views of the forearm were acquired. COMPARISON: [facility], CR, XR ELBOW 1 OR 2 VIEWS LEFT, 01/23/2023, 9:14. [facility], , XR WRIST LT 2V, 03/08/2024, 9:31. FINDINGS: Bones: There is a mildly displaced, mildly impacted fracture of the distal radius, with intra-articular involvement. No accompanying fracture of the ulna can be seen. No fractures of the more proximal bones can be seen. Degenerative changes are seen throughout, which are most prominent involving the 1st carpometacarpal joint. Milder degenerative changes are seen elsewhere. Soft tissues: No suspicious soft tissue calcifications or masses. IMPRESSION: Distal radius fracture. Dictated by: Amos Dawson M.D. on 03/08/2024 at 8:50 Approved by: Amos Dawson M.D. on 03/08/2024 at 8:51 [facility] Narrative Medical decision making narrative: Multiple etiologies for patient's symptoms considered including, but not limited to: Sprain, strain, contusion Patient's examination reveals no gross deformity of the left wrist and no neurovascular compromise. His x-ray shows a distal radius fracture with mild displacement and mildly impacted. Treatment for this is a sugar-tong splint which was applied and patient tolerated well. CMS intact after application. He did not sustain any other injuries. He does wear continuous glucose monitor for his type 1 diabetes and his sugars were registering at over 300 with his monitor so we did point of care glucose and it was 390. I offered patient that he could stay and we can give him some insulin here but he preferred to go home since [place] around the [place]. He has been dealing with type 1 diabetes for 50 years (diagnosed age 18) and feels comfortable managing this glucose at home. We discussed return precautions should he have any worsening signs or symptoms. For his fracture he will follow up with Orthopedics. Patient's symptoms improved over duration of stay with above-stated therapies. Findings and discharge diagnosis discussed with patient/family followed by verbalization of understanding Return precautions discussed with patient/family whom verbalize understanding of diagnosis and plan <Sarina Mendoza DO - Last Filed: 03/09/24 07:27> Lab Data Labs: Point of Care Testing Glucose POC 390 Discharge Plan Departure Patient Disposition: Home Clinical Impression: Fracture of wrist Qualifiers: Encounter type: initial encounter Fracture type: closed Laterality: left Qualified Code(s): S62.102A - Fracture of unspecified carpal bone, left wrist, initial encounter for closed fracture Diabetes Qualifiers: Diabetes mellitus type: type 1 Diabetes mellitus complication status: without complication Qualified Code(s): E10.9 - Type 1 diabetes mellitus without complications Instructions: DI for Distal Radius Fracture Activity Restrictions/Additional Instructions: Thank you for choosing us to care for you today. You have a fracture of your left wrist called a distal radius fracture. You were placed in a splint today which you need to keep on at all times. You are advised to follow up with orthopedics. Please call the number on this paperwork for [facility] to schedule your follow-up appointment. Please call them at your earliest convenience this week. If you experience any excessive numbness tingling, purple digits of the left hand, or pressure points of the splint please return so we can take a look. We also discussed your blood sugar today which is 390. Please use your Humalog as needed on the sliding scale to help get your blood sugar down. Please return if you experience any extreme nausea, vomiting, dizziness, changes in her mental status, etc. Prescriptions: No Action enalapril maleate 20 mg tablet 30 mg PO DAILY Qty: 90 3RF insulin lispro [Humalog U-100 Insulin] 100 unit/mL Solution 4 - 12 units SQ AC Qty: 0 Patient Comments: sliding scale levothyroxine [Synthroid] 175 MCG tablet 0.175 mg PO QDAY Qty: 0 insulin glargine [Lantus U-100 Insulin] 100 unit/mL Solution 20 units SQ BEDTIME Qty: 0 niacin [Niaspan Extended-Release] 1,000 MG tablet extended release 24 hr 1,000 mg PO BEDTIME Qty: 0 Adult Low Dose Aspirin 81 mg Tablet 81 mg PO DAILY tamsulosin 0.4 mg capsule 0.8 mg PO BEDTIME Qty: 180 3RF Referrals: Preethi Cavazos MD [Primary Care Provider] - Felipe Morelos MD [Physician] - (distal radius fx, left, nondisplaced ) Stand Alone Forms: Patient Portal/API ED Sign-out <Sarina Mendoza DO - Last Filed: 03/09/24 07:27> Cosign ED Attending Divinaature Attestation: I was available for consultation.
[2024-03-08 11:46] VITALS: BP 147/66; PULSE 82; RESP 18; O2SAT 99
== END 2024-03-08 12:02 | disposition home or self-care (01) ==
PROVIDERS: Emergency Provider Physician Assistant; PCP Family Medicine
DX: S62.102A Fracture of unspecified carpal bone, left wrist, initial encounter for closed fracture (principal); W18.30XA Fall on same level, unspecified, initial encounter; E10.9 Type 1 diabetes mellitus without complications; Z79.899 Other long term (current) drug therapy; Z79.82 Long term (current) use of aspirin
CPT/HCPCS: 73090; 73100; 82962; 99283

== ENCOUNTER → 2024-06-02 08:49 | Outpatient (CLI) | payer MEDICARE, SELFPAY ==
[2024-06-03 11:11] LABS: Fecal Immunochemical Test Negative (Negative)
== END ==
PROVIDERS: PCP Family Medicine; Referring Provider Family Medicine; Visit Provider Family Medicine
DX: Z12.11 Encounter for screening for malignant neoplasm of colon (principal)
CPT/HCPCS: 82274

== ENCOUNTER 2024-09-01 09:06 | Emergency (ER) | payer MEDICARE, SELFPAY ==
[2024-09-01] VITALS (8 sets, daily range): BP systolic 192–208; BP diastolic 78–81; PULSE 80–91; RESP 20; TEMP 36.9; O2SAT 93–96; BMI 29.5
--- NOTE | 2024-09-01 09:17 | DI.RAD.S_ITS ---
PROCEDURE: XR RIBS LT MIN 3V W CXR1V INDICATIONS: fall with bruising and pain on last TECHNIQUE: 4 views of the ribs were acquired, along with a single view chest. COMPARISON: [facility], CR, XR SHOULDER 2+ VIEWS LEFT, 01/23/2023, 9:09. [facility], CR, XR RIBS LT MIN 3V W CXR1V, 06/09/2020, 12:58. [facility], CR, XR CHEST 1V, 05/20/2023, 8:47. FINDINGS: Surgical changes and devices: None. Bones and chest wall: Several left-sided rib fractures are seen, including involving the 4th through 9th ribs. Some of these rib fractures demonstrate moderate displacement. It is noted that this patient has fractures that can be seen on the 2022 examination within a similar location. However, these rib fractures clearly appear worse. A remote left humeral neck fracture can be seen. Age-appropriate bony degenerative changes are seen. The overlying soft tissues are within normal limits, without martha soft tissue gas. Lungs and pleura: No pleural effusions or pneumothorax. Lungs appear clear. Mediastinum: Mediastinal contours appear normal. Heart size is normal. Atherosclerotic calcification of the aortic arch is noted. IMPRESSION: Several left-sided rib fractures, which are clearly worse than in 2022. No associated pneumothorax is seen. Remote left humeral neck fracture noted. Dictated by: Amos Dawson M.D. on 09/01/2024 at 9:12 Approved by: Amos Dawson M.D. on 09/01/2024 at 9:15
--- NOTE | 2024-09-01 10:01 | ED_ITS ---
HPI - Fall General Chief Complaint: Fall Stated Complaint: left sided rib pain Time Seen by Provider: 09/01/24 10:01 Source: patient, RN notes reviewed and old records reviewed Mode of arrival: Ambulatory Limitations: no limitations History of Present Illness HPI Narrative: 69-year-old male history of type 1 diabetes on insulin, dyslipidemia, hypothyroidism on aspirin 81 mg daily who presents with complaint of left-sided chest pain. Patient states last was walking on street stick was covered with a bunch of leaves and he tripped and fell onto his left side driving his left arm into his ribs. Patient states he has had persistent pain since then he has had a little bit of bruising. States he did lightly hit his head, states he did not have any loss of consciousness has not had any headaches. Denies any neck or back pain. States he has been a little bit nauseated since. Did throw up once the day after but states he has also been way off on his diet and attributes it to that. Denies any back pain, denies any other injuries elsewhere. Denies any diarrhea or constipation. States he has been ambulating without issue. States he presents today because he brought his son to the OR for a surgery and was present here in the hospital so came to be evaluated. He does note he was out of his niacin but is going to call his primary care physician for refill. Denies any allergies to medications. No tobacco, occasional alcohol, uses marijuana no other recreational drugs. Related Data Home Medications Medication Instructions Recorded Confirmed insulin lispro 100 unit/mL 4 - 12 units SQ AC ##0 03/08/10 08/04/24 subcutaneous solution (Humalog U-100 Insulin) levothyroxine 175 mcg tablet 0.175 mg PO QDAY ##0 03/08/10 08/04/24 (Synthroid) aspirin 81 mg tablet 81 mg PO DAILY 03/08/24 08/04/24 Previous Rx's Medication Instructions Recorded enalapril maleate 20 mg tablet 30 mg (1.5 x 20 mg) PO DAILY #90 06/19/24 tabs insulin glargine 100 unit/mL 20 unit (0.2 mL) SUBCUT BEDTIME 08/15/24 subcutaneous solution (Lantus #10 mL U-100 Insulin) niacin 1,000 mg tablet,extended 1,000 mg PO BEDTIME #90 tabs 08/15/24 release 24 hr tamsulosin 0.4 mg capsule 0.8 mg (2 x 0.4 mg) PO BEDTIME 08/15/24 #180 caps Allergies Allergy/AdvReac Type Severity Reaction Status Date / Time No Known Drug Allergies Allergy Verified 08/04/24 08:51 Review of Systems Review of Systems ROS Unobtainable: All systems reviewed & are unremarkable except as noted in HPI and below Patient History Medical History Paresthesia of both hands History of DVT (deep vein thrombosis) Diabetes mellitus (~1975) Thyroid disease Insulin dependent diabetes mellitus Obstructive sleep apnea (adult) (pediatric) Incomplete bladder emptying BPH w urinary obs/LUTS Hypertension Surgical History Anesthesia History of knee replacement Hx of cervical spine surgery Family History Father History of heart disease Mother Alzheimer's disease Social History household members: spouse Smoking Status: Never smoker alcohol intake: current Smoking Status: Never smoker alcohol intake frequency: a few times a week Substance Use Type: marijuana Exam Narrative Exam Narrative: GEN: Patient appears in mild distress. HEAD: No evidence of trauma, no raccoon/Gonzales sign. NECK: Nontender, painless range of motion, trachea midline Neck Nexus criteria, no midline line tenderness, distracting injury, altered mental status, neuro deficit, recent EtOH. EYES: PERRLA, EOMI ENT: External inspection normal, trachea is midline, TM's are normal no hemotypanum, Nares are clear, no septal hematoma, no dental or oral injury, airway is normal and with normal occlusion, No bony tenderness RESP: Chest is tender on the left, small spots of ecchymosis no hematoma. Has symmetric movement, no ecchymosis, breath sounds are normal no crackles, wheezes or rales, no tachypnea accessory muscle use CVS: Heart sounds are normal, no murmur noted, No JVD. ABG/GI: Nontender, soft, normal bowel sounds, no distention, no organomegaly, pelvic rock is negative NEURO: Oriented AOx3, neuro is grossly intact, sensation and motor is normal all 4 extremities moving, cranial nerves II through XII are intact, GCS is 15 PSYCH: Normal mood and affect SKIN: Intact, warm and dry, no crepitus and without decubitus BACK: No CVA tenderness, no vertebral tenderness, no step-off's, no crepitus EXT: Atraumatic, hips are nontender, normal range of motion. Initial Vital Signs Initial Vital Signs: Vital Signs Pulse Rate 91 H 09/01/24 09:09 Pulse Oximetry 93 09/01/24 09:09 Scores GCS [place] coma scale eye opening: Spontaneous [place] coma scale verbal response: Orientated [place] coma scale motor response: Obey commands [place] coma scale total score: 15 Nexus Score for C-Spine Focal Neurologic deficit present: No Midline spinal tenderness present: No Altered level of conciousness present: No Intoxication present: No Distracting Injury Present: No Nexus Criteria for C-spine: 0 Course Orders Ordered: ED Orders 09/01/24 09:17 XR ribs LT min 3V w CXR1V Stat Vital Signs Vital signs: Vital Signs - 8 hr 09/01/24 10:51 09/01/24 10:51 Pulse Rate 81 Blood Pressure 193/80 H Pulse Oximetry 93 MDM - Fall Imaging Data Chest x-ray: Radiologist's Impression: Danny Van??69??M??1955 ? Allergy/Adv: No Known Drug Allergies Close Ribs X-Ray (Signed) Amos Dawson - 09/01/24 Wrist X-Ray (Signed) Amos Dawson - 03/08/24 Forearm X-Ray (Signed) Amos Dawson - 03/08/24 Bladder Scan 09/18/23 Vascular Ultrasound (Signed) Donaldo Ornelas - 06/07/23 Knee X-Ray (Signed) Taiwo Lal - 06/06/23 Chest X-Ray (Signed) Taiwo Lal - 05/20/[address] (Signed) Taiwo Lal - 12/04/[address] (Signed) Amos Dawson - 12/04/[address] (Signed) Amos Dawson - 12/04/22 Shoulder X-Ray (Signed) Aleida Veronica - 12/04/22 Elbow X-Ray (Signed) Aleida Veronica - 12/04/[address] (Signed) Taiwo Lal - 08/28/[address] (Signed) Taiwo Lal - 08/28/22 Vascular Ultrasound (Signed) Litzy Shipman - 08/24/[address] (Signed) Samir,Amos - 06/09/20 Ribs X-Ray (Signed) Mona Henderson - 06/09/20 Echocardiogram Ultrasound (Signed) Robby Church - 11/20/19 Shoulder MRI (Signed) Janes Mullen - 01/24/19 Abdominal Arterial Study US (Signed) Ricardo Arrington - 01/07/[address] (Signed) Rodolfo Woodson - 10/25/[address] (Signed) Taiwo Lal - 10/25/18 Ribs X-Ray (Signed) Rodolfo Woodson - 10/25/[address] (Signed) Rodolfo Woodson - 10/25/18 Shoulder MRI (Signed) Janes Mullen - 04/24/18 Shoulder X-Ray (Signed) Haseeb Zamora - 03/06/18 Launch?[place] [address] XRay Report Signed Patient: Danny Van MR#: [id number] : 1955 Acct:[id number] Age/Sex: 69 / M Date of Service: 09/01/24 Loc: ED Accession Number: [id number] Procedure: XR ribs LT min 3V w CXR1V Ordering Provider: Alyssa Lai D.O. PROCEDURE: XR RIBS LT MIN 3V W CXR1V INDICATIONS: fall with bruising and pain on last TECHNIQUE: 4 views of the ribs were acquired, along with a single view chest. COMPARISON: [facility], CR, XR SHOULDER 2+ VIEWS LEFT, 01/23/2023, 9:09. [facility], CR, XR RIBS LT MIN 3V W CXR1V, 06/09/2020, 12:58. [facility], CR, XR CHEST 1V, 05/20/2023, 8:47. FINDINGS: Surgical changes and devices: None. Bones and chest wall: Several left-sided rib fractures are seen, including involving the 4th through 9th ribs. Some of these rib fractures demonstrate moderate displacement. It is noted that this patient has fractures that can be seen on the 2022 examination within a similar location. However, these rib fractures clearly appear worse. A remote left humeral neck fracture can be seen. Age-appropriate bony degenerative changes are seen. The overlying soft tissues are within normal limits, without martha soft tissue gas. Lungs and pleura: No pleural effusions or pneumothorax. Lungs appear clear. Mediastinum: Mediastinal contours appear normal. Heart size is normal. Atherosclerotic calcification of the aortic arch is noted. IMPRESSION: Several left-sided rib fractures, which are clearly worse than in 202. No associated pneumothorax is seen. Remote left humeral neck fracture noted. Dictated by: Amos Dawson M.D. on 09/01/2024 at 9:12 Approved by: Amos Dawson M.D. on 09/01/2024 at 9:15 [facility] Narrative Medical decision making narrative: 69-year-old male who had ground level mechanical fall on , 4 days ago, patient has left-sided chest pain. Did head describes it as slightly no loss of consciousness. Patient isn't an aspirin daily. Discussed head CT patient's does have some persistent nausea did have 1 episode of vomiting on Sunday none since then although he attributes this to his diet. Patient politely defers and he is 4 days out from his initial injury so it is suspected he had a very large bleed or life-threatening bleed would have more significant symptoms at this time. He has not had any acute neurologic changes. Did discuss risks versus benefits and patient continues to elected to defer. Chest x-ray shows rib fracture, blunting of the costophrenic angle on the left, no pneumothorax. Rad read fractions were present on prior involving ribs 4 through 9 on the left some of these have moderate displacement and noted that were seen in 2022 exam similar location but appear worse today. There has a remote left humeral neck fracture noted age-appropriate bony degenerative changes no associated pneumothorax. Patient defers anything stronger than Tylenol for pain. Discussed return precautions all questions answered. Patient did receive incentive spirometer with teaching from respiratory therapy. Patient is 4 days out from his initial injury felt he does not require admission at this time as his vitals are overall appropriate he is well-appearing ambulating without requiring any additional interventions. Discharge Plan Departure Patient Disposition: Home Clinical Impression: Closed rib fracture, Fall Instructions: DI for Rib Fracture Activity Restrictions/Additional Instructions: You do have rib fractures on your left side, ribs 4 through 9 which appear on old x-ray imaging but do appear worse today you have likely re-injured this area. Use incentive spirometer once hourly while awake for the next 2 weeks. You can take acetaminophen up to a 1000 mg every 6 hours as needed for pain and/or can take Advil to 1-2 tablets every 6 hours as needed. Your maximum amount of Advil is 6 tablets in 24 hours. You can use a pillow or blanket to brace your side when coughing or sneezing or moving. Please return for new or worsening chest pain, increasing shortness of breath, increasing ecchymosis or bruising, coughing up blood, lightheadedness or passing out, severe headaches, vomiting, new dizziness, new numbness, tingling or weakness or other new or concerning changes. Prescriptions: No Action insulin lispro [Humalog U-100 Insulin] 100 unit/mL Solution 4 - 12 units SQ AC Qty: 0 Patient Comments: sliding scale levothyroxine [Synthroid] 175 MCG tablet 0.175 mg PO QDAY Qty: 0 enalapril maleate 20 mg tablet 30 mg PO DAILY Qty: 90 3RF niacin 1,000 mg tablet extended release 24 hr 1,000 mg PO BEDTIME MDD 1 tablet daily Qty: 90 2RF tamsulosin 0.4 mg capsule 0.8 mg PO BEDTIME Qty: 180 3RF insulin glargine [Lantus U-100 Insulin] 100 unit/mL solution 20 unit SUBCUT BEDTIME Qty: 10 6RF Adult Low Dose Aspirin 81 mg Tablet 81 mg PO DAILY Referrals: Preethi Cavazos MD [Primary Care Provider] - Stand Alone Forms: Patient Portal/API
== END 2024-09-01 10:54 | disposition home or self-care (01) ==
PROVIDERS: Emergency Provider Emergency Medicine; PCP Family Medicine
DX: S22.32XA Fracture of one rib, left side, initial encounter for closed fracture (principal); W01.0XXA Fall on same level from slipping, tripping and stumbling without subsequent striking against object, initial encounter
CPT/HCPCS: 71101; 99281; 99283

== ENCOUNTER → 2024-12-05 08:55 | Outpatient (CLI) | payer MEDICARE, SELFPAY | PROVIDERS: PCP Family Medicine; Referring Provider Family Medicine; Visit Provider Family Medicine | DX: N40.1 Benign prostatic hyperplasia with lower urinary tract symptoms (principal); N13.8 Other obstructive and reflux uropathy | CPT/HCPCS: 36415; 84153 ==

== ENCOUNTER → 2025-05-14 07:13 | Outpatient (CLI) | payer MEDICARE, SELFPAY ==
[2025-05-14 08:24] LABS: Hemoglobin A1C% w Est Avg Glu 6.4 % (4.0-6.0)
[2025-05-14 08:29] LABS: Blood Urea Nitrogen 23 mg/dL (9-20); Calcium 9.7 mg/dL (8.4-10.2); Carbon Dioxide 29 mmol/L (22-32); Chloride 103 mmol/L (98-107); Cholesterol 212 mg/dL (140-199); Estimated Glomerular Filt Rate > 60 mL/min (>60); Glucose 81 mg/dL (70-99); HDL Cholesterol 108 mg/dL (40-60); HEMOLYSIS < 15 (0-50); Potassium 4.8 mmol/L (3.4-5.1); Sodium 136 mmol/L (137-145); Triglycerides 55 mg/dL (35-150)
[2025-05-14 08:59] LABS: Thyroid Stimulating Hormone 2.31 uIU/mL (0.47-4.68)
== END ==
PROVIDERS: PCP Family Medicine; Referring Provider Family Medicine; Visit Provider Internal Medicine Endocrinology, Diabetes & Metabolism
DX: E03.9 Hypothyroidism, unspecified (principal); E10.3519 Type 1 diabetes mellitus with proliferative diabetic retinopathy with macular edema, unspecified eye
CPT/HCPCS: 36415; 80048; 80061; 82043; 82570; 83036; 84443